=== PATIENT | female | born 1950 | race African-American/Black ===

== ENCOUNTER → 2024-01-13 | Outpatient (CLI) | payer MEDICARE, SELFPAY ==
[2024-01-13 13:53] LABS: Basophils # (Auto) 0.1 Thou/mm3 (0.0-0.2); Basophils % (Auto) 1 % (0-2.5); Eosinophils # (Auto) 0.2 Thou/mm3 (0.0-0.5); Eosinophils % (Auto) 3 % (0-10); Hemoglobin 12.8 g/dL (12.0-16.0); Immature Granulocytes % (Auto) 0 % (0-0); Immature Granulocytes Auto 0.02 Thou/mm3 (0.00-0.00); Lymphocytes # (Auto) 1.6 Thou/mm3 (1.0-4.8); Lymphocytes % (Auto) 23 % (10-50); Mean Corpuscular Volume 91 fL (80-100); Monocytes # (Auto) 0.7 Thou/mm3 (0.0-0.8); Monocytes % (Auto) 10 % (0-12); Neutrophils # (Auto) 4.6 Thou/mm3 (1.8-7.7); Neutrophils % (Auto) 63 % (37-80); Nucleated Red Blood Cell % 0 /100 WBC (0); Platelet Count 216 Thou/mm3 (140-440); RDW Standard Deviation 44.6 fL (36.4-46.3); Red Blood Count 4.42 Miln/mm3 (4.00-5.20); White Blood Count 7.2 Thou/mm3 (3.6-11.0)
[2024-01-13 14:38] LABS: Alanine Aminotransferase 10 U/L (10-49); Albumin/Globulin Ratio 1.7 (1.2-2.2); Alkaline Phosphatase 56 U/L (46-116); Amylase 113 U/L (30-118); Anion Gap 5 (7-16); Aspartate Amino Transferase 17 U/L (0-34); BUN/Creatinine Ratio 18 Ratio (12-20); Bilirubin,Total 0.4 mg/dL (0.3-1.2); Blood Urea Nitrogen 11 mg/dL (9-23); Calcium 9.4 mg/dL (8.3-10.6); Calcium (Corrected) 9.4 mg/dL (8.5-10.1); Carbon Dioxide 27.6 mMol/L (20.0-31.0); Chloride 108 mMol/L (98-107); Creatinine (Component) 0.6 mg/dL (0.6-1.3); Globulin 2.4 gm/dL (2.3-3.5); Glucose 87 mg/dL (74-106); Lipase 20 U/L (12-53); Osmolality,Calculated 279 (275-295); Potassium 3.8 mMol/L (3.4-5.1); Sodium 141 mMol/L (136-145); Total Protein 6.4 gm/dL (5.7-8.2); eGFR > 60 See Note
[2024-01-13 15:49] LABS: Collection Type, Urine Clean Catch
[2024-01-13 16:41] LABS: Bilirubin,Urine Negative (Negative); Blood,Urine Negative (Negative); Clarity,Urine Clear (Clear/Hazy); Color,Urine Yellow (Lt Yel-Yel); Glucose, Urine Negative (Negative); Ketones,Urine Negative (Negative); Leukocyte Esterase,Urine Negative (Negative); Nitrite,Urine Negative (Negative); Protein,Urine Trace (Neg - Trace); RBC,Urine 5 /hpf (0-3); Specific Gravity,Urine 1.034 (1.001-1.035); Squamous Epithelial Cell,Urine 2 /hpf (0-5); WBC,Urine 2 /hpf (0-5)
== END | disposition home or self-care (01) ==
LOC: COPL 13:24
PROVIDERS: PCP Specialist; Referring Provider Specialist; Visit Provider Specialist
DX: R91.1 Solitary pulmonary nodule (principal); R06.02 Shortness of breath; D50.0 Iron deficiency anemia secondary to blood loss (chronic)
CPT/HCPCS: 36415; 80053; 81001; 82150; 83690; 85025

== ENCOUNTER → 2024-01-25 | Outpatient (CLI) | payer MEDICARE, SELFPAY ==
--- NOTE | 2024-01-25 13:00 | XR_ITS ---
Examination: CT chest with intravenous contrast CT abdomen with intravenous contrast CT pelvis with intravenous contrast 2-D coronal and sagittal reconstructions Time of exam: January 25, 2024 1342 hours INDICATIONS: Diagnosis solitary pulmonary nodule CTDI: vol (mGy) : 11.7 DLP: (mGycm): 484 Technique: Multiple axial images of the chest, abdomen and pelvis with intravenous contrast, 3.0 mm slice thickness. Images obtained post intravenous injection Isovue 370 60 cc. 2-D sagittal and coronal reconstructions. Low dose protocols were performed. One or more of the following dose reduction techniques were used; automated exposure control, adjustment of the mA and/or KV according to patient size, use of iterative reconstruction technique. Findings: 12 mm right thyroid nodule No thoracic aortic aneurysm dilatation Main pulmonary artery segment is enlarged, 3.8 cm No pulmonary artery emboli noted on this non-CTA study COPD with areas of airspace destruction At least 18 pulmonary nodules, several pleural-based, the largest in the anterior right lung 18 mm Irregular abnormal pleural thickening encasing the right hemithorax, most prominent medial upper right hemithorax extending into the mediastinum, axial image 51 No lobar pneumonia Liver is irregular in contour Upper abdominal wall hernia defect, 7 cm containing colon Spleen is not enlarged No pancreatic mass No hydronephrosis Abdominal aortic calcification no aneurysmal dilatation No bowel obstruction No diverticulitis Atrophic uterus No abdominal or pelvic lymphadenopathy Prominent osteopenia with moderate disc narrowing L3-L4 IMPRESSION: 12 mm right thyroid nodule, consider thyroid sonography follow-up At least 18 mm pulmonary nodules, the largest in the anterior right lung 18 mm, consider pulmonary nodular metastatic disease Markedly abnormal nodular masslike pleural thickening encasing the right hemithorax, extending into the mediastinum in the upper right hemithorax axial image 51, differential would include mesothelioma, metastatic pleural disease, lung cancer The abnormal pleural thickening is amenable to CT-guided percutaneous biopsy for cytologic analysis
== END | disposition home or self-care (01) ==
LOC: SCAT 13:01
PROVIDERS: PCP Specialist; Referring Provider Specialist; Visit Provider Specialist
DX: E04.1 Nontoxic single thyroid nodule (principal); R91.8 Other nonspecific abnormal finding of lung field
CPT/HCPCS: 71260; 74177; A4649; Q9967

== ENCOUNTER → 2024-01-27 | Outpatient (CLI) | payer MEDICARE, SELFPAY ==
[2024-01-27 13:34] LABS: Basophils # (Auto) 0.1 Thou/mm3 (0.0-0.2); Basophils % (Auto) 1 % (0-2.5); Eosinophils # (Auto) 0.3 Thou/mm3 (0.0-0.5); Eosinophils % (Auto) 4 % (0-10); Hematocrit 43.4 % (36.0-46.0); Hemoglobin 13.9 g/dL (12.0-16.0); Immature Granulocytes % (Auto) 0 % (0-0); Immature Granulocytes Auto 0.01 Thou/mm3 (0.00-0.00); Lymphocytes # (Auto) 1.7 Thou/mm3 (1.0-4.8); Lymphocytes % (Auto) 27 % (10-50); Mean Corpuscular Hemoglobin 29.1 pg (25.0-35.0); Mean Corpuscular Volume 91 fL (80-100); Monocytes # (Auto) 0.6 Thou/mm3 (0.0-0.8); Monocytes % (Auto) 10 % (0-12); Neutrophils # (Auto) 3.7 Thou/mm3 (1.8-7.7); Neutrophils % (Auto) 58 % (37-80); Nucleated Red Blood Cell % 0 /100 WBC (0); Platelet Count 259 Thou/mm3 (140-440); RDW Standard Deviation 45.5 fL (36.4-46.3); Red Blood Count 4.77 Miln/mm3 (4.00-5.20); White Blood Count 6.4 Thou/mm3 (3.6-11.0)
[2024-01-27 13:40] LABS: INR 0.9 (0.9-1.3); Partial Thromboplastin Time 26.9 Seconds (22.0-36.0); Prothrombin Time 10.3 Seconds (9.0-12.2)
== END | disposition home or self-care (01) ==
PROVIDERS: PCP Specialist; Referring Provider Specialist; Visit Provider Specialist
DX: Z01.810 Encounter for preprocedural cardiovascular examination (principal)
CPT/HCPCS: 36415; 85025; 85610; 85730

== ENCOUNTER 2024-02-08 07:27 | Outpatient (CLI) | payer MEDICARE, SELFPAY ==
[2024-02-04 09:05] VITALS: BMI 18.8
[2024-02-07 15:39] LABS: Basophils # (Auto) 0.1 Thou/mm3 (0.0-0.2); Basophils % (Auto) 1 % (0-2.5); Eosinophils # (Auto) 0.1 Thou/mm3 (0.0-0.5); Eosinophils % (Auto) 2 % (0-10); Hematocrit 39.7 % (36.0-46.0); Hemoglobin 12.9 g/dL (12.0-16.0); Immature Granulocytes % (Auto) 0 % (0-0); Immature Granulocytes Auto 0.01 Thou/mm3 (0.00-0.00); Lymphocytes # (Auto) 1.4 Thou/mm3 (1.0-4.8); Lymphocytes % (Auto) 21 % (10-50); Mean Corpuscular HGB Conc 32.5 g/dl (31.0-37.0); Mean Corpuscular Hemoglobin 29.4 pg (25.0-35.0); Mean Corpuscular Volume 90 fL (80-100); Monocytes # (Auto) 0.7 Thou/mm3 (0.0-0.8); Monocytes % (Auto) 11 % (0-12); Neutrophils # (Auto) 4.3 Thou/mm3 (1.8-7.7); Neutrophils % (Auto) 65 % (37-80); Nucleated Red Blood Cell % 0 /100 WBC (0); Platelet Count 290 Thou/mm3 (140-440); RDW Standard Deviation 44.4 fL (36.4-46.3); Red Blood Count 4.39 Miln/mm3 (4.00-5.20); White Blood Count 6.7 Thou/mm3 (3.6-11.0)
[2024-02-07 15:51] LABS: Blood Urea Nitrogen 14 mg/dL (9-23); Creatinine (Component) 0.8 mg/dL (0.6-1.3); eGFR > 60 See Note
[2024-02-07 15:54] LABS: INR 0.9 (0.9-1.3); Prothrombin Time 10.3 Seconds (9.0-12.2)
[2024-02-08] VITALS (10 sets, daily range): BP systolic 129–160; BP diastolic 69–105; PULSE 84–92; RESP 16–19; TEMP 36.9–37; O2SAT 94–98
--- NOTE | 2024-02-08 | XR_ITS ---
Examination: AP chest single view Technique one AP upright portable chest single view Exam date and time: February 08, 2024 1044 hours INDICATIONS: Post lung biopsy today FINDINGS: No pneumothorax on the right post pulmonary nodule biopsy Normal heart size Multiple poorly defined parenchymal and pleural nodular thickening in the right hemithorax IMPRESSION: No pneumothorax post lung biopsy
--- NOTE | 2024-02-08 08:30 | XR_ITS ---
Examination: CT-guided percutaneous biopsy pulmonary nodule right upper lobe CT chest without intravenous contrast Date and time of procedure: February 08, 2024 0959 hours INDICATIONS: CT chest January 25, 2024 18 mm pulmonary nodule anterior right lung Informed consent provided. A timeout was completed verifying correct patient, procedure, site and positioning. . Technique: Axial 3 mm sections were obtained for localization of the pulmonary nodule right upper lobe Appropriate area is marked. The patient's site was prepped and draped in sterile fashion Maximal sterile barrier technique utilized, including hand hygiene Local anesthesia was obtained with 1% lidocaine. Low dose protocols were performed. One or more of the following dose reduction techniques were used; automated exposure control, adjustment of the mA and/or KV according to patient size, use of iterative reconstruction technique. Utilizing CT fluoroscopic guidance 3 core biopsies obtained of the pulmonary nodule right upper lobe Patient appears in stable condition during this procedure. At completion of the procedure, the patient is in satisfactory condition. Estimated blood loss 0 cc Complete pathology report to follow. Impression: Successful CT-guided percutaneous biopsy pulmonary nodule right upper lobe
[2024-02-08] MEDS: SODIUM CHLORIDE 0.9% 500 ML 100 ML 20 ML IV (09:53)
[2024-02-08] MEDS: fentaNYL CIT INJ 50 mCg/ML AMP 2ML 25 MCG IVP (10:18)
--- NOTE | 2024-02-08 11:21 | PC.NURSE ---
first chest xray read by MD Lugo was negative for pneumothorax
--- NOTE | 2024-02-08 11:40 | XR_ITS ---
Examination: AP chest single view TECHNIQUE: Upright AP portable chest single view Exam date and time: February 08, 2024 1147 hours Comparison February 08, 2024 INDICATIONS: Post lung biopsy today. FINDINGS: No pneumothorax post lung biopsy Normal heart size Pleural parenchymal disease right hemithorax IMPRESSION: No pneumothorax post lung biopsy
== END 2024-02-08 12:53 | disposition home or self-care (01) ==
PROVIDERS: Radiology Diagnostic Radiology; PCP Specialist; Referring Provider Specialist; Visit Provider Specialist
DX: C34.11 Malignant neoplasm of upper lobe, right bronchus or lung (principal); Z01.818 Encounter for other preprocedural examination
CPT/HCPCS: 32408; 36415; 77012; 82565; 84520; 85025; 85610; 85730; J3010; J7040

== ENCOUNTER 2024-02-22 08:18 | Outpatient (RCR) | payer MEDICARE, SELFPAY ==
--- NOTE | 2024-02-28 12:46 | CTCCONSULT_ITS ---
Patient: LAURA KAYE : 1950 MR#: [id number] Page 2 of 3 CONSULTATION NOTE DATE OF CONSULTATION: 02/22/2024 NAME: LAURA KAYE ACCOUNT: [id number] : 1950 AGE: 73 REFERRING PHYSICIAN: Anita Black MD PRIMARY PHYSICIAN: Anita Black MD REASON FOR VISIT: New diagnosis of squamous cell lung cancer ONCOLOGY HISTORY: DIAGNOSIS: Invasive squamous cell cancer DATE OF DIAGNOSIS: 02/08/2024 STAGE/TNM: Unknown TREATMENT HISTORY: Care?Plan Start?Date Cycle Day Intent HISTORY OF PRESENT ILLNESS: 73-year-old female with a new diagnosis of squamous cell lung cancer. Patient is complaining of weig ht loss. Patient's last scan was in January. Patient was complaining of bronchitis-like symptoms. Patient then was found to have pulmonary nodules and advice was to repeat CT scan. Patient also had 15 pound weight loss. Patient's biopsy now showed squamous cell lung cancer. OTHER MEDICAL HISTORY/CONDITIONS: Lung cancer Asthma Gastritis / gastroentestinal disease Umbilical?hernia?repair?-?20?yrs?ago FAMILY HISTORY: Patient?denies?family?cancer?history. SOCIAL HISTORY: Occupational?History:?Retired?- Education?Level:?Vocational School Graduate Marital?Status:? Tobacco Use:?Smoked 1PP x 10yrs; quit 6 months ago ETOH?Use:?Socailly Drug?Note:?Denies Social?History?Note:?Son?lives?wtih?pt [employer] HISTORY: Menarche?-?Age:?14 Menopause:?Age?57 :?4 Live?Births:?4 Age?1st?:?16 MEDICATIONS: 1. Albuterol Sulfate HFA - 90 mcg/Actuation 1 Puff(s) Twice a Day 2. Calcium 600 + D(3) - 600-125 mg-unit 1 tab Every other day 3. cyclobenzaprine - 10 mg 1 tab Daily 4. hydrOXYzine HCl - 10 mg 1 tab Daily 5. montelukast - 10 mg 1 tab Daily 6. [place] - 10-325 mg 1 tab Twice a Day 7. omeprazole - 20 mg 1 Capsule Twice a Day 8. pantoprazole - 40 mg 1 tab Daily 9. Triamcinolone Acetonide (Top) - 0.1 % As directed Medications Last Reconciled by Katarzyna Siegel RN on 02/22/2024 ALLERGIES: No Known Drug Allergies REVIEW OF SYSTEMS: A complete 14-point review of systems was performed and is negative except as noted in interval histo ry. PHYSICAL EXAMINATION: VITAL SIGNS: Temperature?0, Height?66?inches Weight?116?lbs PAIN: 4 - Moderate pain ECOG Performance Status: 1 - Symptomatic; ambulatory; restricted in strenuous activity GENERAL APPEARANCE: Appears well, in no apparent distress, appropriately interactive. HEENT: Normocephalic, no temporal wasting, normal conjunctiva, no scleral icterus, normal hearing, li ps without lesions, neck normal range of motion. CARDIOVASCULAR: Not assessed. PULMONARY: Normal respiratory effort, no respiratory distress or use of accessory muscles, speaking i n full sentences, no tachypnea. EXTREMITIES: No pedal edema or cyanosis. SKIN: Normal skin appearance. NEUROLOGIC: Alert and oriented x4. PSHYCHIATRIC: Appropriate affect, mood normal, behavior normal, intact thought and speech. LABORATORY DATA: I have personally reviewed and interpreted each of the patient?s relevant lab tests, abnormal finding s are below: Date ASSESSMENT/PLAN: Squamous cell lung cancer Patient needs staging PET CT scan MRI brain to evaluate any metastatic disease PFTs Once patient have clear staging imaging, then will decide whether patient will need chemotherapy or o nly surgical referral ORDERS: PET CT scan MRI and PFT RETURN TO CLINIC: RTC in 1 to 2 weeks with the PET CT scan results BILLING AND COMPLIANCE: I reviewed external records from providers outside my specialty as summarized above. I spent a total of 50 minutes on this patient?s care on the day of their visit excluding time spent related to any bi lled procedures. This time includes time spent with the patient as well as time spent documenting in the medical record, reviewing patients records and tests, obtaining history, placing orders, communi cating with other healthcare professionals, counseling the patient, family or caregiver, and/or care coordination for the diagnoses above. Electronically Signed by: {Object.Sanct_ID*PnP.NameFL@M}, {Object.Sanct_ID*PnP.Suffix@U} D: {Object.Sanct_Date} T: {Object.Sanct_Time} CC: Anita?DUNG Black PCP: Anita Black Referring: Anita Black This document was completed utilizing speech recognition software. Grammatical errors, random word in sertions, pronoun errors, and incomplete sentences are an occasional consequence of this system due t o software limitations, ambient noise, and hardware issues. Any formal questions or concerns about th e content, text or information contained within the body of this dictation should be directly address ed to the provider for clarification.
== END 2024-02-22 23:59 | disposition home or self-care (01) ==
LOC: SCTC 08:18
PROVIDERS: PCP Specialist; Referring Provider Specialist; Visit Provider Internal Medicine Hematology & Oncology
DX: C34.11 Malignant neoplasm of upper lobe, right bronchus or lung (principal); R63.4 Abnormal weight loss; Z68.1 Body mass index [BMI] 19.9 or less, adult
CPT/HCPCS: 99212; G0463

== ENCOUNTER 2024-03-07 13:10 | Outpatient (RCR) | payer MEDICARE, SELFPAY ==
--- NOTE | 2024-03-07 14:10 | CTCCONSULT_ITS ---
[facility] [address] [place], [place] [address] Consultation Note Date: 03/07/2024 MR#: [id number] Name: LAURA KAYE : 1950 Dx: C34.11 Malignant neoplasm of upper lobe, right bronchus or lung Attending physician. Anita Black MD Reason for consultation. Patient with newly diagnosed SCCA lung CA. History of Present Illness: Patient is a 73-year-old lady with limited smoking history though quit ex perienced bronchitis-like symptoms and weight loss and CT scan 02/14/2024 revealed a 12 mm right thyr oid nodule, at least 18 mm pulmonary nodules the largest in the anterior right lung 18 mm along with markedly abnormal nodular masslike pleural thickening encasing the right hemithorax extending to medi astinum in the upper right hemithorax. CT-guided needle biopsy right upper lobe nodule 02/08/2024 re vealed invasive squamous cell carcinoma well-differentiated. Patient has already seen Dr. Margot pittman dical oncologist who has ordered PET scan MRI brain and PFTs. Patient referred for radiation oncolog y consultation. Past Medical History: Asthma gastritis umbilical hernia repair 20 years ago Meds. Albuterol calcium cyclobenzaprine hydroxyzine montelukast [place] 10 twice daily omeprazole pant oprazole triamcinolone Family history no cancer in family Social History: Limited smoking history lives in [place] cared for by nephew who is a length control tester Review of Systems: Has had weight loss chest pressure pain symptoms Physical Exam: General: Tired appearing lady in moderate distress from chest discomfort HEENT: Atraumatic normocephalic extraocular is intact no oral lesions no cervical or supraclavicular adenopathy CV: Decreased breath sounds right lung heart regular rate and rhythm ABD: Soft no organomegaly or tenderness EXT: No signs of clubbing or edema Assessment:#1. Squamous cell CA right upper lung, possibly extensively involving right hemithorax an d mediastinum. 2. PET scan PFTs MRI brain pending. 3. Will evaluate patient afterward and make recommendations regarding any treatments that could bene fit patient. 4. Thank you very much allowing me to evaluate this patient Cc: Anita Black MD Electronically signed by: Robbi Pratt MD, DABR 03/07/2024 2:08 PM
== END 2024-03-24 23:59 | disposition home or self-care (01) ==
LOC: SCTC 13:10
PROVIDERS: PCP Specialist; Referring Provider Specialist; Visit Provider Radiology Therapeutic Radiology
DX: C34.11 Malignant neoplasm of upper lobe, right bronchus or lung (principal)
CPT/HCPCS: 99213; A9270; G0463

== ENCOUNTER → 2024-03-16 | Outpatient (CLI) | payer MEDICARE, SELFPAY ==
[2024-03-16 13:15] LABS: Basophils # (Auto) 0.1 Thou/mm3 (0.0-0.2); Basophils % (Auto) 1 % (0-2.5); Eosinophils # (Auto) 0.3 Thou/mm3 (0.0-0.5); Eosinophils % (Auto) 4 % (0-10); Hematocrit 38.5 % (36.0-46.0); Hemoglobin 12.3 g/dL (12.0-16.0); Immature Granulocytes % (Auto) 0 % (0-0); Immature Granulocytes Auto 0.03 Thou/mm3 (0.00-0.00); Lymphocytes # (Auto) 1.3 Thou/mm3 (1.0-4.8); Lymphocytes % (Auto) 18 % (10-50); Mean Corpuscular HGB Conc 31.9 g/dl (31.0-37.0); Mean Corpuscular Hemoglobin 28.9 pg (25.0-35.0); Mean Corpuscular Volume 90 fL (80-100); Monocytes # (Auto) 0.8 Thou/mm3 (0.0-0.8); Monocytes % (Auto) 11 % (0-12); Neutrophils # (Auto) 4.7 Thou/mm3 (1.8-7.7); Neutrophils % (Auto) 66 % (37-80); Nucleated Red Blood Cell % 0 /100 WBC (0); Platelet Count 301 Thou/mm3 (140-440); RDW Standard Deviation 46.4 fL (36.4-46.3); Red Blood Count 4.26 Miln/mm3 (4.00-5.20); White Blood Count 7.2 Thou/mm3 (3.6-11.0)
[2024-03-16 13:25] LABS: Alanine Aminotransferase 11 U/L (10-49); Albumin, Serum 3.7 gm/dL (3.4-4.8); Albumin/Globulin Ratio 1.4 (1.2-2.2); Alkaline Phosphatase 68 U/L (46-116); Anion Gap 6 (7-16); Aspartate Amino Transferase 19 U/L (0-34); BUN/Creatinine Ratio 25 Ratio (12-20); Bilirubin,Total 0.7 mg/dL (0.3-1.2); Blood Urea Nitrogen 10 mg/dL (9-23); Calcium (Corrected) 10.2 mg/dL (8.5-10.1); Carbon Dioxide 31.1 mMol/L (20.0-31.0); Chloride 105 mMol/L (98-107); Creatinine (Component) 0.4 mg/dL (0.6-1.3); Globulin 2.6 gm/dL (2.3-3.5); Glucose 92 mg/dL (74-106); Osmolality,Calculated 282 (275-295); Potassium 4.1 mMol/L (3.4-5.1); Sodium 142 mMol/L (136-145); Total Protein 6.3 gm/dL (5.7-8.2); eGFR > 60 See Note
== END | disposition home or self-care (01) ==
LOC: COPL 12:09
PROVIDERS: PCP Specialist; Referring Provider Radiology Therapeutic Radiology; Visit Provider Radiology Therapeutic Radiology
DX: Z01.89 Encounter for other specified special examinations (principal)
CPT/HCPCS: 36415; 80053; 85025

== ENCOUNTER → 2024-03-18 | Outpatient (CLI) | payer MEDICARE, SELFPAY ==
--- NOTE | 2024-03-18 08:00 | XR_ITS ---
Examination: MRI of brain without intravenous contrast. MRI brain with intravenous contrast. Date and time of exam:March 18, 2024 0823 hrs. Indications: Diagnosis malignant neoplasm unspecified part of right bronchus or lung, staging Technique: Multiple axial and sagittal images of the brain to been obtained. Siemens high-resolution 1.52 Mirta short bore scanner utilized. Sagittal sections, T1 weighted images, TR 500, TE 14, are performed. Axial sections proton-density and T2-weighted images have been obtained. Inversion recovery axial images, TR 9260, TE 111, TR 2500. Diffusion weighted images, axial sections, TR 4800, TE 128, B value 1000. Axial sections, ADC map, TR 4800, TE 128. Axial and coronal images were also obtained post 9 cc gadolinium administered intravenously. Findings:: Enlargement of the sella turcica is not present. The optic chiasm and infundibular stalk are not remarkable. There is no localized enlargement of the medulla or chase. Fourth ventricle and cerebellar tonsils appear normal in position. No subacute area of hemorrhage density is seen. Fourth ventricle is midline. Mass in the cerebellopontine angle region is not evident. 7th and 8th nerve complexes exhibit symmetry Globes are symmetrical Orbital musculature including medial lateral rectus muscles do not exhibit abnormality Increased white matter signal is mild Effacement of the cortical sulcal markings is not identified. Mass effect upon the ventricular system is not identified. Diffusion-weighted images demonstrate no focus of restricted diffusion Contrast images demonstrate no abnormal enhancing cerebellar or cerebral lesions Impression: Negative for acute hemorrhage, mass effect or midline shift No acute infarct No abnormal enhancing cerebellar or cerebral metastatic lesions
== END | disposition home or self-care (01) ==
PROVIDERS: PCP Specialist; Referring Provider Internal Medicine Hematology & Oncology; Visit Provider Internal Medicine Hematology & Oncology
DX: C34.91 Malignant neoplasm of unspecified part of right bronchus or lung (principal)
CPT/HCPCS: 70553; A9579

== ENCOUNTER → 2024-03-23 | Outpatient (CLI) | payer MEDICARE, SELFPAY ==
--- NOTE | 2024-03-23 08:45 | XR_ITS ---
EXAMINATION: PET/CT FUSION SKULL TO THIGH EXAM DATE AND TIME: March 23, 2024 0916 hours INDICATIONS: Diagnosis lung cancer staging prior to treatment CTDI:vol (mGy) 2.28 DLP: (mGycm) 179.66 PROCEDURE: 15.27 mCi FDG was administered intravenously To allow for distribution and uptake of radiotracer, the patient was allowed to rest quietly in a shielded room. Imaging was performed on an integrated 16-slice PET/CT scanner, with scanning from the skull base to the mid thigh. Serum blood glucose at the time of the injection was measured 100 mg/dL. CT scanning was performed without oral or intravenous contrast material. FINDINGS: Head and Neck: There is no barbara hypermetabolism in the neck. The visualized portions of the brain are normal in appearance on CT. Chest: Extensive hypermetabolic nodular pleural disease surrounding the right lung, measuring up to 26 mm in thickness 8mm hypermetabolic lymph node anterior to the ascending thoracic aorta 18 mm hypermetabolic subcarinal lymphadenopathy 14 mm hypermetabolic right internal mammary lymph node Minimal hypermetabolic right pleural fluid Abdomen and Pelvis: There is no barbara hypermetabolism in retroperitoneal or pelvic chains. The spleen is normal in size and FDG avidity. Musculoskeletal: Marrow uptake is within normal range. IMPRESSION: Hypermetabolic mediastinal and right internal mammary lymphadenopathy Extensive abnormal hypermetabolic nodular pleural disease surrounding the right lung
== END | disposition home or self-care (01) ==
PROVIDERS: PCP Specialist; Referring Provider Internal Medicine Hematology & Oncology; Visit Provider Internal Medicine Hematology & Oncology
DX: R59.0 Localized enlarged lymph nodes (principal); R91.8 Other nonspecific abnormal finding of lung field; C34.11 Malignant neoplasm of upper lobe, right bronchus or lung
CPT/HCPCS: 78815; A9552

== ENCOUNTER 2024-04-17 06:59 | Outpatient (CLI) | payer MEDICARE, SELFPAY ==
[2024-04-17] VITALS (17 sets, daily range): BP systolic 124–159; BP diastolic 72–99; PULSE 85–102; RESP 14–23; TEMP 37.1–37.3; O2SAT 94–100; BMI 17.6
[2024-04-17 07:40] LABS: Basophils # (Auto) 0.1 Thou/mm3 (0.0-0.2); Basophils % (Auto) 1 % (0-2.5); Eosinophils # (Auto) 0.3 Thou/mm3 (0.0-0.5); Eosinophils % (Auto) 3 % (0-10); Hemoglobin 13.5 g/dL (12.0-16.0); Immature Granulocytes % (Auto) 0 % (0-0); Immature Granulocytes Auto 0.02 Thou/mm3 (0.00-0.00); Lymphocytes # (Auto) 1.5 Thou/mm3 (1.0-4.8); Lymphocytes % (Auto) 18 % (10-50); Mean Corpuscular HGB Conc 33.8 g/dl (31.0-37.0); Mean Corpuscular Hemoglobin 29.9 pg (25.0-35.0); Mean Corpuscular Volume 89 fL (80-100); Monocytes % (Auto) 12 % (0-12); Neutrophils # (Auto) 5.4 Thou/mm3 (1.8-7.7); Neutrophils % (Auto) 65 % (37-80); Nucleated Red Blood Cell % 0 /100 WBC (0); Platelet Count 220 Thou/mm3 (140-440); RDW Standard Deviation 44.4 fL (36.4-46.3); Red Blood Count 4.51 Miln/mm3 (4.00-5.20); White Blood Count 8.4 Thou/mm3 (3.6-11.0)
[2024-04-17 08:28] LABS: INR 0.9 (0.9-1.3); Partial Thromboplastin Time 23.1 Seconds (22.0-36.0); Prothrombin Time 10.2 Seconds (9.0-12.2)
[2024-04-17] MEDS: ceFAZolin 1 GM in SODIUM CHLORIDE 0.9% 100 ML IV (09:09)
[2024-04-17] MEDS: MIDAZOLAM INJ 1 MG/ML VIAL 2 ML 2 MG IV (09:24)
[2024-04-17] MEDS: fentaNYL CIT INJ 50 mCg/ML AMP 2ML 100 MCG IVP (09:24)
[2024-04-17] MEDS: HEPARIN SOD LOCK SYR 100 UNIT/ML 500 UNIT STFIELD (09:27)
[2024-04-17] MEDS: LIDOCAINE INJ PF 1% 30 ML VIAL 20 ML INFL (09:27)
[2024-04-17] MEDS: LIDOCAINE 1% W/EPI 1:100K 20 ML VIAL INFL (09:27)
--- NOTE | 2024-04-17 09:30 | XR_ITS ---
Exam: Fluoroscopic and ultrasound-guided right IJ port placement. Date: 04/17/2024, 8:34 AM Indication: Access for chemotherapy. Fluoroscopy time 0.2 minutes Dose: 3.92 mGy Technique: After a discussion of risks and benefits informed consent was obtained from the patient. Patient was brought to the angiography suite and placed supine on the exam table. Preliminary ultrasound evaluation showed the right IJ to be patent. The skin overlying the right neck and upper chest was cleaned and draped in normal sterile surgical fashion. 20 cc's of 1% lidocaine was used for local anesthesia. Conscious sedation was begun with direct nursing supervision. Using ultrasound guidance access to the IJ was obtained with a micropuncture needle. An 0.018 wire was advanced through the needle into the SVC and the needle was withdrawn. A 5 Emirati micropuncture change sheath was advanced over the wire, and the wire removed. The sheath was capped. A 5 cm incision was made over right chest. Small pouch was created with a combination of sharp and blunt dissection. The port and catheter tubing were attached to the tunneling device and pulled underneath the skin and exiting at the right IJ access site. Right IJ 5 inch sheath was replaced with a 7 Emirati peel-away sheath. Catheter was advanced through the peel-away sheath and peel-away sheath was removed. Distal catheter tip was appropriately positioned at the cavoatrial junction. The port pocket was closed with deep interrupted sutures using 2-0 Vicryl and superficial running sutures utilized 3-0 Vicryl. IJ access site was closed with 3-0 Vicryl and Dermabond glue Port flushed and aspirated easily and is ready for use. Impression: Successful placement of right IJ port as above with distal tip at the caval atrial junction Catheter is ready for use.
--- NOTE | 2024-04-17 10:11 | PC.NURSE ---
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
--- NOTE | 2024-04-17 11:30 | PC.NURSE ---
1130 patient is awake, alert, breathing unlabored, dressing dry with no bleeding, discharge instructions were given to patient and nephew Ronaldo, patient discharged home in wheelchair with all belongings including inhaler. Pt had stated she couldn't find her second inhaler, nephew stated he found the second inhaler.
== END 2024-04-17 11:30 | disposition home or self-care (01) ==
PROVIDERS: Radiology Diagnostic Radiology; PCP Specialist; Referring Provider Internal Medicine Hematology & Oncology; Visit Provider Internal Medicine Hematology & Oncology
DX: C34.11 Malignant neoplasm of upper lobe, right bronchus or lung (principal)
CPT/HCPCS: 36558; 36415; 76937; 77001; 85025; 85610; 85730; 99152; C1769; C1788; C1894; J0690; J1642; J2250; J3010; J3490; J7050

== ENCOUNTER 2024-04-21 07:50 | Outpatient (RCR) | payer MEDICARE, SELFPAY ==
--- NOTE | 2024-04-11 09:57 | CTCFLWUP_ITS ---
[facility] [address] [place], [place] [address] FOLLOW-UP NOTE Date: 04/11/2024 MR#: [id number] Name: LAURA KAYE : 1950 Dx: C34.11 Malignant neoplasm of upper lobe, right bronchus or lung Identification. Patient was squamous SCCA of the lung had PET scan performed 03/23/2024. This revealed extensive disease involving the right chest including hypermetabolic mediastinal and right internal mammary lymphadenopathy and pleural region. Patient is clearly not a surgical candidate, and not a radiation candidate at this point. Will try to schedule patient see Dr. Frost as quickly as possible. Electronically signed by: Robbi Pratt M.D. 04/11/2024 9:55 AM
--- NOTE | 2024-04-13 16:44 | CTCFLWUP_ITS ---
Patient: LAURA KAYE : 1950 Page 2 of 2 FOLLOW UP NOTE DATE OF SERVICE: 04/13/2024 NAME: LAURA KAYE ACCOUNT: [id number] : 1950 AGE: 73 INTERVAL HISTORY: Patient is 73-year-old woman here for follow-up on squamous cell lung cancer. Patient is yet to start her treatment. Patient was seen by radiation oncology and surgery. ONCOLOGY HISTORY: DIAGNOSIS: Invasive squamous cell cancer DATE OF DIAGNOSIS: 02/08/2024 STAGE/TNM: Likely stage III based on imaging TREATMENT HISTORY: Care?Plan Start?Date Cycle Day Intent Pembro?Paclitaxel?Carbopla?sq?cell 04/11/2024 1 21 Palliative HISTORY OF PRESENT ILLNESS: 73-year-old female with a new diagnosis of squamous cell lung cancer. Patient is complaining of weight loss. Patient's last scan was in January. Patient was complaining of bronchitis-like symptoms. Patient then was found to have pulmonary nodules and advice was to repeat CT scan. Patient also had 15 pound weight loss. Patient's biopsy now showed squamous cell lung cancer. OTHER MEDICAL HISTORY/CONDITIONS: Lung cancer Asthma Gastritis / gastroentestinal disease Umbilical?hernia?repair?-?20?yrs?ago FAMILY HISTORY: Patient?denies?family?cancer?history. SOCIAL HISTORY: Occupational?History:?Retired?- Education?Level:?Vocational School Graduate Marital?Status:? 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 Albuterol Sulfate HFA - 90 mcg/Actuation 1 Puff(s) Twice a Day 2. azithromycin - 250 mg tab As directed 3. Calcium 600 + D(3) - 600-125 mg-unit 1 tab Every other day 4. cyclobenzaprine - 10 mg 1 tab Daily 5. hydrOXYzine HCl - 10 mg 1 tab Daily 6. montelukast - 10 mg 1 tab Daily 7. [place] - 10-325 mg 1 tab Twice a Day 8. omeprazole - 20 mg 1 Capsule Twice a Day 9. pantoprazole - 40 mg 1 tab Daily 10. Triamcinolone Acetonide (Top) - 0.1 % As directed Medications Last Reconciled by Shani Portillo MA on 04/13/2024 ALLERGIES: No Known Drug Allergies REVIEW OF SYSTEMS: A complete 14-point review of systems was performed and is negative except as noted in interval history. PHYSICAL EXAMINATION: VITAL SIGNS: Temperature?97.9, B/P?123/77, Oxygen?Saturation?95% Weight?101?lbs PAIN: 5 - Between moderate and severe pain ECOG Performance Status: 3 - Symptomatic; limited self-care; spends >50% of time in bed, not bedridden GENERAL APPEARANCE: Appears well, in no apparent distress, appropriately interactive. HEENT: Normocephalic, no temporal wasting, normal conjunctiva, no scleral icterus, normal hearing, lips without lesions, neck normal range of motion. CARDIOVASCULAR: Not assessed. PULMONARY: Bilateral expiratory wheezing EXTREMITIES: No pedal edema or cyanosis. SKIN: Normal skin appearance. NEUROLOGIC: Alert and oriented x4. PSHYCHIATRIC: Appropriate affect, mood normal, behavior normal, intact thought and speech. LABORATORY DATA: I have personally reviewed and interpreted each of the patient?s relevant lab tests, abnormal findings are below: Date 03/16/24 ??WHITE?BLOOD?COUNT?(Thou/mm3) 7.2 ??RED?BLOOD?COUNT?(Miln/mm3) 4.26 ??HEMOGLOBIN?(gm/dl) 12.3 ??HEMATOCRIT?(%) 38.5 ??PLATELET?COUNT?(Thou/mm3) 301 ??NEUTROPHILS?%,?AUTO?(%) 66 ??LYMPH?%,?AUTO?(%) 18 ??NEUTROPHILS,?AUTO?(Thou/mm3) 4.7 ASSESSMENT/PLAN: Squamous cell lung cancer likely stage III 03/23/2024-PET CT scan reviewed.Hypermetabolic mediastinal and right internal mammary lymphadenopathy Extensive abnormal hypermetabolic nodular pleural disease surrounding the right lung MRI brain reviewed and shows Negative for acute hemorrhage, mass effect or midline shift No acute infarct No abnormal enhancing cerebellar or cerebral metastatic lesions PFTs shows very low lung function Patient was seen by radiation oncology and not a candidate for radiation or surgery Discussed palliative chemotherapy CBC CMP TSH T4, port catheter placement Start chemotherapy TANG RETURN TO CLINIC: 6 weeks BILLING AND COMPLIANCE: I reviewed external records from providers outside my specialty as summarized above. I spent a total of 50 minutes on this patient?s care on the day of their visit excluding time spent related to any billed procedures. This time includes time spent with the patient as well as time spent documenting in the medical record, reviewing patients records and tests, obtaining history, placing orders, communicating with other healthcare professionals, counseling the patient, family or caregiver, and/or care coordination for the diagnoses above. Electronically Signed by: Jaison Frost MD T: 4:42 PM CC: Anita?DUNG Blcak PCP: Anita Black Referring: Anita Black This document was completed utilizing speech recognition software. Grammatical errors, random word insertions, pronoun errors, and incomplete sentences are an occasional consequence of this system due to software limitations, ambient noise, and hardware issues. Any formal questions or concerns about the content, text or information contained within the body of this dictation should be directly addressed to the provider for clarification.
== END 2024-04-21 23:59 | disposition home or self-care (01) ==
LOC: SCTC 07:50
PROVIDERS: PCP Specialist; Referring Provider Specialist; Visit Provider Internal Medicine Hematology & Oncology
DX: C34.11 Malignant neoplasm of upper lobe, right bronchus or lung (principal)
CPT/HCPCS: 99212; 99213; G0463

== ENCOUNTER 2024-05-16 14:32 | Emergency (ER) | payer MEDICARE, SELFPAY ==
[2024-05-16 15:13] VITALS: BP 100/65; PULSE 99; RESP 18; TEMP 36.9; O2SAT 95; BMI 16.9
--- NOTE | 2024-05-16 15:18 | EKG_ITS ---
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
--- NOTE | 2024-05-16 15:18 | XR_ITS ---
Examination: AP chest single view TECHNIQUE: Upright AP portable chest single view Exam date and time: May 16, 2024 1614 hours Comparison February 08, 2024 INDICATIONS: Chest pain shortness of breath today., Diagnosis malignant neoplasm lung FINDINGS: Again noted extensive pleural parenchymal disease right base, consider superimposed pneumonia upon the nodular pleural disease in the right lower hemithorax Please see the PET/CT scan report March 23, 2024 indicating extensive hypermetabolic nodular pleural disease surrounding the right lung Prominent right tracheobronchial lymph node Right ordered catheter tip satisfactory position IMPRESSION: Extensive pleural parenchymal disease right hemithorax with right mediastinal lymphadenopathy Suspicious for superimposed pneumonia right base
--- NOTE | 2024-05-16 15:19 | PD.EDRME ---
Rapid Medical Screening Exam RME Arrival date/time: 05/16/24 14:32 Chief Complaint: Allergic Reaction Time Seen by Provider: 05/16/24 14:53 Vital signs: Vital Signs Temperature 98.5 F 05/16/24 15:13 Pulse Rate 99 05/16/24 15:13 Respiratory Rate 18 05/16/24 15:13 Blood Pressure 100/65 05/16/24 15:13 Pulse Oximetry (%) 95 05/16/24 15:13 Oxygen Delivery Method Room Air 05/16/24 15:13 RME Narrative: Chest pressure, shortness of breath initiated today while getting her second chemo treatment, history of lung cancer.
[2024-05-16 15:40] LABS: Basophils # (Auto) 0.1 Thou/mm3 (0.0-0.2); Basophils % (Auto) 0 % (0-2.5); Eosinophils % (Auto) 0 % (0-10); Hematocrit 37.3 % (36.0-46.0); Hemoglobin 11.9 g/dL (12.0-16.0); Immature Granulocytes % (Auto) 1 % (0-0); Immature Granulocytes Auto 0.17 Thou/mm3 (0.00-0.00); Lymphocytes # (Auto) 0.7 Thou/mm3 (1.0-4.8); Lymphocytes % (Auto) 4 % (10-50); Mean Corpuscular HGB Conc 31.9 g/dl (31.0-37.0); Mean Corpuscular Hemoglobin 29.6 pg (25.0-35.0); Mean Corpuscular Volume 93 fL (80-100); Monocytes # (Auto) 0.1 Thou/mm3 (0.0-0.8); Monocytes % (Auto) 1 % (0-12); Neutrophils # (Auto) 18.9 Thou/mm3 (1.8-7.7); Neutrophils % (Auto) 95 % (37-80); Nucleated Red Blood Cell % 0 /100 WBC (0); Platelet Count 385 Thou/mm3 (140-440); RDW Standard Deviation 48.4 fL (36.4-46.3); Red Blood Count 4.02 Miln/mm3 (4.00-5.20)
[2024-05-16 15:56] LABS: Alanine Aminotransferase 9 U/L (10-49); Albumin, Serum 3.6 gm/dL (3.4-4.8); Albumin/Globulin Ratio 1.2 (1.2-2.2); Alkaline Phosphatase 156 U/L (46-116); Anion Gap 7 (7-16); Aspartate Amino Transferase 17 U/L (0-34); B-Type Natriuretic Peptide 24 pg/mL (0-100); BUN/Creatinine Ratio 20 Ratio (12-20); Bilirubin,Total 0.2 mg/dL (0.3-1.2); Blood Urea Nitrogen 10 mg/dL (9-23); Calcium 9.4 mg/dL (8.3-10.6); Calcium (Corrected) 9.7 mg/dL (8.5-10.1); Carbon Dioxide 26.3 mMol/L (20.0-31.0); Chloride 109 mMol/L (98-107); Creatinine (Component) 0.5 mg/dL (0.6-1.3); Estimated Creatinine Clearance 73.2 mL/min (>60); Globulin 3.1 gm/dL (2.3-3.5); Glucose 145 mg/dL (74-106); Osmolality,Calculated 285 (275-295); Potassium 4.7 mMol/L (3.4-5.1); Sodium 142 mMol/L (136-145); Total Protein 6.7 gm/dL (5.7-8.2); Troponin I < 0.020 ng/mL (0.0-0.045); eGFR > 60 See Note
== END 2024-05-16 16:54 | disposition left against medical advice (07) ==
LOC: SERX 16:19
PROVIDERS: Physician Assistant; Emergency Provider Emergency Medicine; PCP Specialist
DX: R07.89 Other chest pain (principal); R06.02 Shortness of breath; C34.90 Malignant neoplasm of unspecified part of unspecified bronchus or lung; Z53.29 Procedure and treatment not carried out because of patient's decision for other reasons
CPT/HCPCS: 36415; 71045; 80053; 83880; 84484; 85025; 93005; 99281

== ENCOUNTER 2024-05-22 10:27 | Outpatient (RCR) | payer MEDICARE, SELFPAY ==
[2024-04-24 12:08] LABS: Basophils # (Auto) 0.1 Thou/mm3 (0.0-0.2); Basophils % (Auto) 1 % (0-2.5); Eosinophils # (Auto) 0.3 Thou/mm3 (0.0-0.5); Eosinophils % (Auto) 3 % (0-10); Hematocrit 36.5 % (36.0-46.0); Hemoglobin 11.5 g/dL (12.0-16.0); Immature Granulocytes % (Auto) 0 % (0-0); Immature Granulocytes Auto 0.02 Thou/mm3 (0.00-0.00); Lymphocytes # (Auto) 1.4 Thou/mm3 (1.0-4.8); Lymphocytes % (Auto) 18 % (10-50); Mean Corpuscular HGB Conc 31.5 g/dl (31.0-37.0); Mean Corpuscular Hemoglobin 29.6 pg (25.0-35.0); Mean Corpuscular Volume 94 fL (80-100); Monocytes # (Auto) 0.8 Thou/mm3 (0.0-0.8); Monocytes % (Auto) 11 % (0-12); Neutrophils # (Auto) 4.9 Thou/mm3 (1.8-7.7); Neutrophils % (Auto) 66 % (37-80); Nucleated Red Blood Cell % 0 /100 WBC (0); Platelet Count 249 Thou/mm3 (140-440); RDW Standard Deviation 48.4 fL (36.4-46.3); Red Blood Count 3.88 Miln/mm3 (4.00-5.20); White Blood Count 7.5 Thou/mm3 (3.6-11.0)
[2024-04-24 12:26] LABS: Alanine Aminotransferase 9 U/L (10-49); Albumin, Serum 3.6 gm/dL (3.4-4.8); Albumin/Globulin Ratio 1.3 (1.2-2.2); Alkaline Phosphatase 61 U/L (46-116); Anion Gap 7 (7-16); Aspartate Amino Transferase 18 U/L (0-34); BUN/Creatinine Ratio 33 Ratio (12-20); Bilirubin,Total 0.4 mg/dL (0.3-1.2); Blood Urea Nitrogen 10 mg/dL (9-23); Calcium 9.1 mg/dL (8.3-10.6); Calcium (Corrected) 9.4 mg/dL (8.5-10.1); Carbon Dioxide 28.7 mMol/L (20.0-31.0); Chloride 103 mMol/L (98-107); Creatinine (Component) 0.3 mg/dL (0.6-1.3); Globulin 2.7 gm/dL (2.3-3.5); Glucose 81 mg/dL (74-106); Osmolality,Calculated 275 (275-295); Potassium 3.7 mMol/L (3.4-5.1); Sodium 139 mMol/L (136-145); Total Protein 6.3 gm/dL (5.7-8.2); eGFR > 60 See Note
[2024-04-24 13:53] LABS: Thyroid Stimulating Hormone 0.46 uIU/mL (0.55-4.78)
[2024-05-15 16:40] LABS: Basophils # (Auto) 0.1 Thou/mm3 (0.0-0.2); Basophils % (Auto) 1 % (0-2.5); Eosinophils % (Auto) 0 % (0-10); Hematocrit 37.6 % (36.0-46.0); Hemoglobin 12.1 g/dL (12.0-16.0); Immature Granulocytes % (Auto) 1 % (0-0); Immature Granulocytes Auto 0.24 Thou/mm3 (0.00-0.00); Lymphocytes # (Auto) 1.9 Thou/mm3 (1.0-4.8); Lymphocytes % (Auto) 8 % (10-50); Mean Corpuscular HGB Conc 32.2 g/dl (31.0-37.0); Mean Corpuscular Hemoglobin 29.9 pg (25.0-35.0); Mean Corpuscular Volume 93 fL (80-100); Monocytes # (Auto) 1.5 Thou/mm3 (0.0-0.8); Monocytes % (Auto) 7 % (0-12); Neutrophils # (Auto) 19.3 Thou/mm3 (1.8-7.7); Neutrophils % (Auto) 84 % (37-80); Nucleated Red Blood Cell % 0 /100 WBC (0); Platelet Count 438 Thou/mm3 (140-440); RDW Standard Deviation 47.6 fL (36.4-46.3); Red Blood Count 4.05 Miln/mm3 (4.00-5.20); White Blood Count 23.1 Thou/mm3 (3.6-11.0)
[2024-05-15 17:01] LABS: Free T4 (Free Thyroxine) 1.15 ng/dL (0.89-1.76)
[2024-05-15 17:13] LABS: Alanine Aminotransferase 10 U/L (10-49); Albumin, Serum 3.6 gm/dL (3.4-4.8); Albumin/Globulin Ratio 1.2 (1.2-2.2); Alkaline Phosphatase 169 U/L (46-116); Anion Gap 10 (7-16); Aspartate Amino Transferase 15 U/L (0-34); BUN/Creatinine Ratio 18 Ratio (12-20); Bilirubin,Total 0.4 mg/dL (0.3-1.2); Blood Urea Nitrogen 7 mg/dL (9-23); Calcium 9.2 mg/dL (8.3-10.6); Calcium (Corrected) 9.5 mg/dL (8.5-10.1); Carbon Dioxide 27.6 mMol/L (20.0-31.0); Chloride 100 mMol/L (98-107); Creatinine (Component) 0.4 mg/dL (0.6-1.3); Glucose 90 mg/dL (74-106); Osmolality,Calculated 273 (275-295); Potassium 3.7 mMol/L (3.4-5.1); Sodium 138 mMol/L (136-145); Total Protein 6.6 gm/dL (5.7-8.2); eGFR > 60 See Note
--- NOTE | 2024-05-22 23:05 | CTCFLWUP_ITS ---
Patient: LAURA KAYE : 1950 Page 4 of 5 FOLLOW UP NOTE DATE OF SERVICE: 05/22/2024 NAME: LAURA KAYE ACCOUNT: [id number] : 1950 AGE: 73 INTERVAL HISTORY: Patient is 73-year-old woman here for follow-up on squamous cell lung cancer Patient received her first cycle of chemotherapy and did well. Patient cycle chemotherapy cycle was complicated. Patient did not receive her prechemo meds as prescribed and forgot and taken them. Patient was having shortness of breath and hypotension and was sent to emergency room ONCOLOGY HISTORY: DIAGNOSIS: Invasive squamous cell cancer DATE OF DIAGNOSIS: 02/08/2024 STAGE/TNM: Likely stage III based on imaging TREATMENT HISTORY: Care?Plan Start?Date Cycle Day Intent Pembro?Paclitaxel?Carbopla?sq?cell 04/25/2024 1 21 Palliative HISTORY OF PRESENT ILLNESS: 73-year-old female with a new diagnosis of squamous cell lung cancer. Patient is complaining of weight loss. Patient's last scan was in January. Patient was complaining of bronchitis-like symptoms. Patient then was found to have pulmonary nodules and advice was to repeat CT scan. Patient also had 15 pound weight loss. Patient's biopsy now showed squamous cell lung cancer. OTHER MEDICAL HISTORY/CONDITIONS: Lung cancer Asthma Gastritis / gastroentestinal disease Umbilical?hernia?repair?-?20?yrs?ago FAMILY HISTORY: Patient?denies?family?cancer?history. SOCIAL HISTORY: Occupational?History:?Retired?- Education?Level:?Vocational School Graduate Marital?Status:? Tobacco Use:?Smoked 1PP x 10yrs; quit 6 months ago ETOH?Use:?Socailly Drug?Note:?Denies Social?History?Note:?Son?lives?wtih?pt [employer] HISTORY: Menarche?-?Age:?14 Menopause:?Age?57 :?4 Live?Births:?4 Age?1st?:?16 MEDICATIONS: 1. Albuterol Sulfate HFA - 90 mcg/Actuation 1 Puff(s) Twice a Day 2. Benadryl - 25 mg 2 tab 2 tabs po 12 hrs and 6 hrs before chemo 3. Calcium 600 + D(3) - 600-125 mg-unit 1 tab Every other day 4. Compazine - 5 mg 1 tab Daily 5. cyclobenzaprine - 10 mg 1 tab Daily 6. dexAMETHasone - 20 mg 1 tab 1 tab po 12 hrs and 6 hrs before chemo 7. dexamethasone - 4 mg 20 mg Daily 8. HYDROcodone-acetaminophen - 10-325 mg 1 tab q6 9. hydrOXYzine HCl - 10 mg 1 tab Daily 10. montelukast - 10 mg 1 tab Daily 11. Sanborn - 10-325 mg 1 tab Twice a Day 12. omeprazole - 20 mg 1 Capsule Twice a Day 13. ondansetron - 8 mg 1 tab Daily 14. Pepcid - 20 mg 1 tab 1 tab po 12 and 6 hours before chemo 15. Triamcinolone Acetonide (Top) - 0.1 % As directed Medications Last Reconciled by Shani Portillo MA on 05/22/2024 ALLERGIES: No Known Drug Allergies REVIEW OF SYSTEMS: A complete 14-point review of systems was performed and is negative except as noted in interval history. PHYSICAL EXAMINATION: VITAL SIGNS: PAIN: 3 - Between mild and moderate pain ECOG Performance Status: 0 - Asymptomatic and fully active GENERAL APPEARANCE: Appears well, in no apparent distress, appropriately interactive. HEENT: Normocephalic, no temporal wasting, normal conjunctiva, no scleral icterus, normal hearing, lips without lesions, neck normal range of motion. CARDIOVASCULAR: Not assessed. PULMONARY: Bilateral expiratory wheezing EXTREMITIES: No pedal edema or cyanosis. SKIN: Normal skin appearance. NEUROLOGIC: Alert and oriented x4. PSHYCHIATRIC: Appropriate affect, mood normal, behavior normal, intact thought and speech. LABORATORY DATA: I have personally reviewed and interpreted each of the patient?s relevant lab tests, abnormal findings are below: Date 05/15/24 05/16/24 ??WHITE?BLOOD?COUNT?(Thou/mm3) 23.1?H 20.0?H ??RED?BLOOD?COUNT?(Miln/mm3) 4.05 4.02 ??HEMOGLOBIN?(gm/dl) 12.1 11.9?L ??HEMATOCRIT?(%) 37.6 37.3 ??PLATELET?COUNT?(Thou/mm3) 438 385 ??NEUTROPHILS?%,?AUTO?(%) 84?H 95?H ??LYMPH?%,?AUTO?(%) 8?L 4?L ??NEUTROPHILS,?AUTO?(Thou/mm3) 19.3?H 18.9?H ??GLUCOSE,RANDOM?(mg/dL) 90 145?H ??BLOOD?UREA?NITROGEN?(mg/dL) 7?L 10 ??CREATININE?(mg/dL) 0.40?L 0.50?L ??SODIUM?(mmol/L) 138 142 ??POTASSIUM?(mmol/L) 3.7 4.7 ??CHLORIDE?(mmol/L) 100 109?H ??CrCl?(CandG)?(ml/min) 89.60 71.68 ??AST/SGOT?(Unit/L) 15 17 ??ALT/SGPT?(Unit/L) 10 9?L ??ALKALINE?PHOSPHATASE?(Unit/L) 169?H 156?H ??BILIRUBIN,?TOTAL?(mg/dL) 0.4 0.2?L ??PROTEIN?TOTAL?(gm/dl) 6.6 6.7 ??ALBUMIN,?SERUM?(gm/dl) 3.6 3.6 ??GLOBULIN?(gm/dl) 3.0 3.1 ??ALBUMIN/GLOBULIN?RATIO 1.2 1.2 ??CALCIUM,?SERUM?(mg/dL) 9.2 9.4 ??CALCIUM?SERUM?(CORRECTED)?(mg/dL) 9.5 9.7 ASSESSMENT/PLAN: Squamous cell lung cancer likely stage III 03/23/2024-PET CT scan reviewed.Hypermetabolic mediastinal and right internal mammary lymphadenopathy Extensive abnormal hypermetabolic nodular pleural disease surrounding the right lung MRI brain reviewed and shows Negative for acute hemorrhage, mass effect or midline shift No acute infarct No abnormal enhancing cerebellar or cerebral metastatic lesions PFTs shows very low lung function Patient was seen by radiation oncology and not a candidate for radiation or surgery Palliative chemotherapy completed cycle 1 For cycle 2 patient received Keytruda. Patient was receiving Taxol when she was having shortness of breath. Patient did not do her nebulization and received prechemotherapy drugs at home Patient today extensively counseled to be compliant with medication Will have to stop chemotherapy patient does not take medicine as prescribed at home and do not take her COPD medicines at home Patient otherwise has been tolerating the drugs well Imaging after cycle 3 Will try to give her remaining chemotherapy tomorrow Advised to take her dexamethasone prechemo and also COPD medication CT scan chest was reviewed. Patient had atelectasis as had no fever or any sputum production She is clinically better now with no baseline symptoms ORDERS: Order # Description [id number] CBC + Comprehensive Metabolic Panel [id number] Lab Appointment [id number] CBC + Comprehensive Metabolic Panel [id number] Lab Appointment [id number] CBC + Comprehensive Metabolic Panel [id number] Lab Appointment [id number] CBC + Comprehensive Metabolic Panel [id number] Lab Appointment [id number] CBC + Comprehensive Metabolic Panel [id number] Lab Appointment [id number] CBC + Comprehensive Metabolic Panel [id number] Lab Appointment [id number] CBC + Comprehensive Metabolic Panel [id number] Lab Appointment [id number] CBC + Comprehensive Metabolic Panel [id number] Lab Appointment [id number] CBC + Comprehensive Metabolic Panel [id number] Lab Appointment [id number] CBC + Comprehensive Metabolic Panel [id number] Lab Appointment RETURN TO CLINIC: After cycle 3 BILLING AND COMPLIANCE: I reviewed external records from providers outside my specialty as summarized above. I spent a total of 50 minutes on this patient?s care on the day of their visit excluding time spent related to any billed procedures. This time includes time spent with the patient as well as time spent documenting in the medical record, reviewing patients records and tests, obtaining history, placing orders, communicating with other healthcare professionals, counseling the patient, family or caregiver, and/or care coordination for the diagnoses above. Electronically Signed by: {Object.Sanct_ID*PnP.NameFL@M}, {Object.Sanct_ID*PnP.Suffix@U} D: {Object.Sanct_Date} T: {Object.Sanct_Time} CC: Anita?Wayne,? PCP: Anita Black Referring: Anita Black This document was completed utilizing speech recognition software. Grammatical errors, random word insertions, pronoun errors, and incomplete sentences are an occasional consequence of this system due to software limitations, ambient noise, and hardware issues. Any formal questions or concerns about the content, text or information contained within the body of this dictation should be directly addressed to the provider for clarification.
== END 2024-05-22 23:59 | disposition home or self-care (01) ==
LOC: SCTC 10:27
PROVIDERS: PCP Specialist; Referring Provider Specialist; Visit Provider Internal Medicine Hematology & Oncology
DX: Z51.11 Encounter for antineoplastic chemotherapy (principal); C34.11 Malignant neoplasm of upper lobe, right bronchus or lung; J44.9 Chronic obstructive pulmonary disease, unspecified; Z91.148 Patient's other noncompliance with medication regimen for other reason
CPT/HCPCS: 36591; 80053; 84439; 84443; 85025; 96367; 96372; 96375; 96409; 96411; 96413; 96415; 96417; 99212; 99424; 99425; A4216; J1100; J1200; J1453; J1642; J2405; J2506; J3490; J7040; J7050; J9045; J9267; J9271; G0463

== ENCOUNTER → 2024-06-01 | Outpatient (CLI) | payer MEDICARE, SELFPAY ==
--- NOTE | 2024-06-01 10:35 | XR_ITS ---
Examination: Abdomen AP single view Technique: AP portable supine abdomen, single view Exam date and time: June 01, 2024 1108 hrs. Indications: Abdominal pain one year Findings: The film is rotated RPO Kidneys and bladder are opacified with no hydronephrosis Nonobstructive bowel gas pattern No free air Pleural parenchymal disease right base Impression: Nonobstructive bowel gas pattern
--- NOTE | 2024-06-01 10:37 | XR_ITS ---
Examination: CT abdomen with intravenous contrast CT pelvis with intravenous contrast 2-D coronal reconstructions 2-D sagittal reconstructions Date and time of exam:June 01, 2024 1057 hrs. Comparison PET/CT scan March 23, 2024 Indications: Diagnosis lung cancer one month ago, staging. CTDI: vol (mGy) 8.46 DLP: (mGycm) 230 Technique: Multiple axial sections of the abdomen and pelvis have been obtained. 64 slice high-resolution scanner used. 3 mm axial sections have been obtained, post intravenous injection 60 cc [id number] 2-D sagittal, coronal reconstructions obtained. Low dose protocols were performed. One or more of the following dose reduction techniques were used; automated exposure control, adjustment of the mA and/or KV according to patient size, use of iterative reconstruction technique. Findings: Extensive nodular pleural disease surrounding the lower right hemithorax, please see the PET/CT scan report March 23, 2024 No focal liver or splenic lesion Upper abdomen focal defect in the anterior abdominal wall containing transverse colon, the defect measuring 6 cm, no incarcerated bowel Absent gallbladder Mild nodular thickening left adrenal gland No common bile duct stones No pancreatic mass Posterior left renal cyst, 28 mm Aorta normal size No bowel obstruction No diverticulitis No pericecal inflammatory change Retroverted uterus Contracted urinary bladder Moderate osteopenia Impression: Extensive nodular pleural disease surrounding the lower right hemithorax, please see the PET/CT scan report March 23, 2024 No focal liver or splenic lesion No abdominal or pelvic lymphadenopathy
[2024-06-01 10:49] LABS: Collection Type, Urine Clean Catch
[2024-06-01 11:00] LABS: Basophils # (Auto) 0.1 Thou/mm3 (0.0-0.2); Basophils % (Auto) 0 % (0-2.5); Eosinophils # (Auto) 0.1 Thou/mm3 (0.0-0.5); Eosinophils % (Auto) 0 % (0-10); Hematocrit 39.5 % (36.0-46.0); Hemoglobin 12.8 g/dL (12.0-16.0); Immature Granulocytes % (Auto) 5 % (0-0); Immature Granulocytes Auto 2.16 Thou/mm3 (0.00-0.00); Lymphocytes # (Auto) 2.1 Thou/mm3 (1.0-4.8); Lymphocytes % (Auto) 5 % (10-50); Mean Corpuscular HGB Conc 32.4 g/dl (31.0-37.0); Mean Corpuscular Hemoglobin 30.3 pg (25.0-35.0); Mean Corpuscular Volume 93 fL (80-100); Monocytes # (Auto) 2.1 Thou/mm3 (0.0-0.8); Monocytes % (Auto) 5 % (0-12); Neutrophils # (Auto) 36.7 Thou/mm3 (1.8-7.7); Neutrophils % (Auto) 85 % (37-80); Nucleated Red Blood Cell % 0 /100 WBC (0); Platelet Count 247 Thou/mm3 (140-440); RDW Standard Deviation 50.4 fL (36.4-46.3); Red Blood Count 4.23 Miln/mm3 (4.00-5.20)
[2024-06-01 11:05] LABS: White Blood Count 43.2 Thou/mm3 (3.6-11.0)
[2024-06-01 11:24] LABS: Alanine Aminotransferase < 7 U/L (10-49); Albumin, Serum 3.7 gm/dL (3.4-4.8); Albumin/Globulin Ratio 1.3 (1.2-2.2); Alkaline Phosphatase 210 U/L (46-116); Amylase 106 U/L (30-118); Anion Gap 9 (7-16); Aspartate Amino Transferase 14 U/L (0-34); BUN/Creatinine Ratio 25 Ratio (12-20); Bilirubin,Total 0.2 mg/dL (0.3-1.2); Blood Urea Nitrogen 10 mg/dL (9-23); Calcium 9.2 mg/dL (8.3-10.6); Calcium (Corrected) 9.4 mg/dL (8.5-10.1); Carbon Dioxide 28.8 mMol/L (20.0-31.0); Chloride 102 mMol/L (98-107); Creatinine (Component) 0.4 mg/dL (0.6-1.3); Globulin 2.8 gm/dL (2.3-3.5); Glucose 99 mg/dL (74-106); Lipase 19 U/L (12-53); Osmolality,Calculated 278 (275-295); Potassium 3.8 mMol/L (3.4-5.1); Sodium 140 mMol/L (136-145); Total Protein 6.5 gm/dL (5.7-8.2); eGFR > 60 See Note
[2024-06-01 11:39] LABS: Bacteria,Urine Rare; Bilirubin,Urine Negative (Negative); Blood,Urine Negative (Negative); Clarity,Urine Clear (Clear/Hazy); Color,Urine Yellow (Lt Yel-Yel); Glucose, Urine Negative (Negative); Hyaline Casts,Urine < 1 /hpf (0-1); Ketones,Urine Negative (Negative); Leukocyte Esterase,Urine Negative (Negative); Nitrite,Urine Negative (Negative); Protein,Urine 2+ (Neg - Trace); RBC,Urine 6 /hpf (0-3); Specific Gravity,Urine 1.036 (1.001-1.035); Squamous Epithelial Cell,Urine 4 /hpf (0-5); WBC,Urine 6 /hpf (0-5)
[2024-06-01 12:02] LABS: Path Review Blood Smear Sent to Pathologist
== END | disposition home or self-care (01) ==
LOC: CCTX 09:54 → COPL 10:05
PROVIDERS: PCP Specialist; Referring Provider Specialist; Visit Provider Specialist
DX: R10.9 Unspecified abdominal pain (principal); J94.8 Other specified pleural conditions
CPT/HCPCS: 36415; 74018; 74177; 80053; 81001; 82150; 83690; 85025; A4649; Q9967

== ENCOUNTER 2024-06-14 14:21 | Outpatient (RCR) | payer MEDICARE, SELFPAY ==
[2024-05-22 13:51] LABS: Basophils # (Auto) 0.1 Thou/mm3 (0.0-0.2); Basophils % (Auto) 1 % (0-2.5); Eosinophils # (Auto) 0.2 Thou/mm3 (0.0-0.5); Eosinophils % (Auto) 1 % (0-10); Hematocrit 36.1 % (36.0-46.0); Hemoglobin 11.4 g/dL (12.0-16.0); Immature Granulocytes % (Auto) 1 % (0-0); Immature Granulocytes Auto 0.09 Thou/mm3 (0.00-0.00); Lymphocytes # (Auto) 1.7 Thou/mm3 (1.0-4.8); Lymphocytes % (Auto) 11 % (10-50); Mean Corpuscular HGB Conc 31.6 g/dl (31.0-37.0); Mean Corpuscular Hemoglobin 30.1 pg (25.0-35.0); Mean Corpuscular Volume 95 fL (80-100); Monocytes # (Auto) 1.1 Thou/mm3 (0.0-0.8); Monocytes % (Auto) 7 % (0-12); Neutrophils # (Auto) 12.1 Thou/mm3 (1.8-7.7); Neutrophils % (Auto) 79 % (37-80); Nucleated Red Blood Cell % 0 /100 WBC (0); Platelet Count 399 Thou/mm3 (140-440); RDW Standard Deviation 50.5 fL (36.4-46.3); Red Blood Count 3.79 Miln/mm3 (4.00-5.20); White Blood Count 15.4 Thou/mm3 (3.6-11.0)
[2024-05-22 14:11] LABS: Alanine Aminotransferase 11 U/L (10-49); Albumin, Serum 3.5 gm/dL (3.4-4.8); Albumin/Globulin Ratio 1.1 (1.2-2.2); Alkaline Phosphatase 124 U/L (46-116); Anion Gap 9 (7-16); Aspartate Amino Transferase 14 U/L (0-34); BUN/Creatinine Ratio 37 Ratio (12-20); Bilirubin,Total 0.3 mg/dL (0.3-1.2); Blood Urea Nitrogen 11 mg/dL (9-23); Calcium 9.4 mg/dL (8.3-10.6); Calcium (Corrected) 9.8 mg/dL (8.5-10.1); Carbon Dioxide 28.1 mMol/L (20.0-31.0); Chloride 103 mMol/L (98-107); Creatinine (Component) 0.3 mg/dL (0.6-1.3); Globulin 3.2 gm/dL (2.3-3.5); Glucose 66 mg/dL (74-106); Osmolality,Calculated 276 (275-295); Potassium 4.1 mMol/L (3.4-5.1); Sodium 140 mMol/L (136-145); Total Protein 6.7 gm/dL (5.7-8.2); eGFR > 60 See Note
[2024-06-12 14:36] LABS: Alanine Aminotransferase < 7 U/L (10-49); Albumin, Serum 3.3 gm/dL (3.4-4.8); Albumin/Globulin Ratio 1.1 (1.2-2.2); Alkaline Phosphatase 173 U/L (46-116); Anion Gap 8 (7-16); Aspartate Amino Transferase 14 U/L (0-34); BUN/Creatinine Ratio 20 Ratio (12-20); Bilirubin,Total 0.5 mg/dL (0.3-1.2); Blood Urea Nitrogen 8 mg/dL (9-23); Calcium 8.7 mg/dL (8.3-10.6); Calcium (Corrected) 9.3 mg/dL (8.5-10.1); Carbon Dioxide 26.3 mMol/L (20.0-31.0); Chloride 106 mMol/L (98-107); Creatinine (Component) 0.4 mg/dL (0.6-1.3); Globulin 2.9 gm/dL (2.3-3.5); Glucose 87 mg/dL (74-106); Osmolality,Calculated 276 (275-295); Potassium 3.6 mMol/L (3.4-5.1); Sodium 140 mMol/L (136-145); Total Protein 6.2 gm/dL (5.7-8.2); eGFR > 60 See Note
[2024-06-13 07:53] LABS: Basophils % (Auto) 0 % (0-2.5); Eosinophils % (Auto) 0 % (0-10); Hematocrit 34.1 % (36.0-46.0); Hemoglobin 11.2 g/dL (12.0-16.0); Immature Granulocytes % (Auto) 1 % (0-0); Immature Granulocytes Auto 0.13 Thou/mm3 (0.00-0.00); Lymphocytes # (Auto) 1.3 Thou/mm3 (1.0-4.8); Lymphocytes % (Auto) 7 % (10-50); Mean Corpuscular HGB Conc 32.8 g/dl (31.0-37.0); Mean Corpuscular Hemoglobin 30.1 pg (25.0-35.0); Mean Corpuscular Volume 92 fL (80-100); Monocytes # (Auto) 0.1 Thou/mm3 (0.0-0.8); Monocytes % (Auto) 1 % (0-12); Neutrophils % (Auto) 91 % (37-80); Nucleated Red Blood Cell % 0 /100 WBC (0); Platelet Count 394 Thou/mm3 (140-440); Red Blood Count 3.72 Miln/mm3 (4.00-5.20); White Blood Count 17.6 Thou/mm3 (3.6-11.0)
== END 2024-06-21 23:59 | disposition home or self-care (01) ==
LOC: SCTC 14:21
PROVIDERS: PCP Specialist; Referring Provider Specialist; Visit Provider Internal Medicine Hematology & Oncology
DX: Z51.11 Encounter for antineoplastic chemotherapy (principal); C34.11 Malignant neoplasm of upper lobe, right bronchus or lung
CPT/HCPCS: 36591; 80053; 85025; 96367; 96372; 96375; 96413; 96415; 96417; 99211; A4216; J1100; J1453; J1642; J2405; J2506; J3490; J7040; J7050; J9045; J9267; J9271; A9270; G0463

== ENCOUNTER 2024-07-20 13:11 | Outpatient (RCR) | payer MEDICARE, SELFPAY ==
[2024-07-03 15:32] LABS: Basophils # (Auto) 0.1 Thou/mm3 (0.0-0.2); Basophils % (Auto) 1 % (0-2.5); Eosinophils % (Auto) 0 % (0-10); Hematocrit 30.5 % (36.0-46.0); Hemoglobin 9.8 g/dL (12.0-16.0); Immature Granulocytes % (Auto) 1 % (0-0); Immature Granulocytes Auto 0.12 Thou/mm3 (0.00-0.00); Lymphocytes # (Auto) 1.6 Thou/mm3 (1.0-4.8); Lymphocytes % (Auto) 11 % (10-50); Mean Corpuscular HGB Conc 32.1 g/dl (31.0-37.0); Mean Corpuscular Hemoglobin 31.1 pg (25.0-35.0); Mean Corpuscular Volume 97 fL (80-100); Monocytes # (Auto) 1.2 Thou/mm3 (0.0-0.8); Monocytes % (Auto) 8 % (0-12); Neutrophils % (Auto) 80 % (37-80); Nucleated Red Blood Cell % 0 /100 WBC (0); Platelet Count 287 Thou/mm3 (140-440); RDW Standard Deviation 55.2 fL (36.4-46.3); Red Blood Count 3.15 Miln/mm3 (4.00-5.20)
[2024-07-03 16:03] LABS: Alanine Aminotransferase 7 U/L (10-49); Albumin, Serum 3.3 gm/dL (3.4-4.8); Albumin/Globulin Ratio 1.3 (1.2-2.2); Alkaline Phosphatase 146 U/L (46-116); Anion Gap 10 (7-16); Aspartate Amino Transferase 13 U/L (0-34); BUN/Creatinine Ratio 30 Ratio (12-20); Bilirubin,Total 0.3 mg/dL (0.3-1.2); Blood Urea Nitrogen 12 mg/dL (9-23); Calcium 8.1 mg/dL (8.3-10.6); Calcium (Corrected) 8.7 mg/dL (8.5-10.1); Carbon Dioxide 26.1 mMol/L (20.0-31.0); Chloride 104 mMol/L (98-107); Creatinine (Component) 0.4 mg/dL (0.6-1.3); Globulin 2.6 gm/dL (2.3-3.5); Glucose 82 mg/dL (74-106); Osmolality,Calculated 278 (275-295); Potassium 3.6 mMol/L (3.4-5.1); Sodium 140 mMol/L (136-145); Thyroid Stimulating Hormone 0.68 uIU/mL (0.55-4.78); Total Protein 5.9 gm/dL (5.7-8.2); eGFR > 60 See Note
--- NOTE | 2024-07-23 23:28 | CTCFLWUP_ITS ---
Patient: DEBORAH KAYE : 1950 Page 4 of 5 FOLLOW UP NOTE DATE OF SERVICE: 07/20/2024 NAME: DEBORAH KAYE ACCOUNT: [id number] : 1950 AGE: 74 INTERVAL HISTORY: Subjective: Chief Complaint Follow-up for cancer treatment, eye redness noticed this morning History of Present Illness Deborah, a 74-year-old female with a history of gastric bypass and cancer, presents for follow-up of her cancer treatment. She reports improvement in her overall condition since starting chemotherapy. The patient notes that her cancer may be shrinking based on a recent CT scan performed by Dr. Black due to stomach pains. The scan showed that the cancer is getting smaller and hasn't spread. Her stomach pain was attributed to hernias, for which she now uses a binder with good effect. Deborah reports significant improvement in her functional status. She is now able to walk from the car to the front door without becoming short of breath, which she previously couldn't do. She also mentions that she no longer experiences the shortness of breath and tingling pain in her chest that she used to have, which was associated with her cancer. Deborah's weight has been gradually increasing. Her last recorded weights were 93, then 95, and now 95 again. This is an improvement from her condition at the beginning of treatment when she couldn't even sit up in a chair. She reports that her appetite and overall energy have improved, particularly after the third treatment. The patient mentions waking up with redness in one eye this morning. The redness started in one spot and then spread to half of the eye. She denies any itching, pain, or irritation associated with the eye redness. Deborah has completed four treatments of chemotherapy and is now transitioning to maintenance immunotherapy. She reports using Ezequiel Han oil as part of her treatment regimen. The patient expresses interest in scheduling cataract surgery, which she was previously unable to do while undergoing immunotherapy. Medications and Supplements - Keytruda - Used for cancer treatment - Ezequiel Han oil - Used for cancer treatment - Benefits: Improves appetite and sleep Review of Systems General: Positive for weight gain. HEENT: Positive for eye redness, negative for eye itching or irritation. Respiratory: Negative for shortness of breath. Gastrointestinal: Positive for past stomach pain. Musculoskeletal: Positive for hernia-related pain. Objective: Vital Signs - Weight: 95 kg Physical Examination General: Patient appears to be in improved condition compared to previous visits. Alert and able to engage in conversation. HEENT: Right eye noted to have redness in one spot, progressing to half of the eye being red. Laboratory, Imaging, and Diagnostic Test Results - CT scan of abdomen and pelvis (date not specified): - No liver involvement - Large defect in stomach area - PET scan (date not specified): - Results pending - Brain MRI (date not specified): - Results pending ONCOLOGY HISTORY: DIAGNOSIS: Invasive squamous cell cancer DATE OF DIAGNOSIS: 02/08/2024 STAGE/TNM: Likely stage III based on imaging TREATMENT HISTORY: Care?Plan Start?Date Cycle Day Intent Pembro?Paclitaxel?Carbopla?sq?cell 04/25/2024 1 21 Palliative HISTORY OF PRESENT ILLNESS: 74-year-old female with a new diagnosis of squamous cell lung cancer. Patient is complaining of weight loss. Patient's last scan was in January. Patient was complaining of bronchitis-like symptoms. Patient then was found to have pulmonary nodules and advice was to repeat CT scan. Patient also had 15 pound weight loss. Patient's biopsy now showed squamous cell lung cancer. OTHER MEDICAL HISTORY/CONDITIONS: Lung cancer Asthma Gastritis / gastroentestinal disease Umbilical?hernia?repair?-?20?yrs?ago FAMILY HISTORY: Patient?denies?family?cancer?history. SOCIAL HISTORY: Occupational?History:?Retired?- Education?Level:?Vocational School Graduate Marital?Status:? 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 Albuterol Sulfate HFA - 90 mcg/Actuation 1 Puff(s) Twice a Day 2. Benadryl - 25 mg 2 tab 2 tabs po 12 hrs and 6 hrs before chemo 3. Calcium 600 + D(3) - 600-125 mg-unit 1 tab Every other day 4. Compazine - 5 mg 1 tab Daily 5. cyclobenzaprine - 10 mg 1 tab Daily 6. dexamethasone - 4 mg 20 mg Daily 7. dexAMETHasone - 20 mg 1 tab 1 tab po 12 hrs and 6 hrs before chemo 8. HYDROcodone-acetaminophen - 10-325 mg 1 tab q6 9. hydrOXYzine HCl - 10 mg 1 tab Daily 10. montelukast - 10 mg 1 tab Daily 11. Girard - 10-325 mg 1 tab Twice a Day 12. omeprazole - 20 mg 1 Capsule Twice a Day 13. ondansetron - 8 mg 1 tab Daily 14. Pepcid - 20 mg 1 tab 1 tab po 12 and 6 hours before chemo 15. Triamcinolone Acetonide (Top) - 0.1 % As directed Medications Last Reconciled by Alison Thrasher MA on 07/20/2024 ALLERGIES: No Known Drug Allergies REVIEW OF SYSTEMS: A complete 14-point review of systems was performed and is negative except as noted in interval history. PHYSICAL EXAMINATION: VITAL SIGNS: Temperature?98.1, B/P?105/74, Oxygen?Saturation?98% PAIN: 2 - Mild pain ECOG Performance Status: 0 - Asymptomatic and fully active GENERAL APPEARANCE: Appears well, in no apparent distress, appropriately interactive. HEENT: Normocephalic, no temporal wasting, normal conjunctiva, no scleral icterus, normal hearing, lips without lesions, neck normal range of motion. CARDIOVASCULAR: Not assessed. PULMONARY: Bilateral expiratory wheezing EXTREMITIES: No pedal edema or cyanosis. SKIN: Normal skin appearance. NEUROLOGIC: Alert and oriented x4. PSHYCHIATRIC: Appropriate affect, mood normal, behavior normal, intact thought and speech. LABORATORY DATA: I have personally reviewed and interpreted each of the patient?s relevant lab tests, abnormal findings are below: Date 06/12/24 06/13/24 07/03/24 ??WHITE?BLOOD?COUNT?(Thou/mm3) ? 17.6?H 15.0?H ??RED?BLOOD?COUNT?(Miln/mm3) ? 3.72?L 3.15?L ??HEMOGLOBIN?(gm/dl) ? 11.2?L 9.8?L ??HEMATOCRIT?(%) ? 34.1?L 30.5?L ??PLATELET?COUNT?(Thou/mm3) ? 394 287 ??NEUTROPHILS?%,?AUTO?(%) ? 91?H 80 ??LYMPH?%,?AUTO?(%) ? 7?L 11 ??NEUTROPHILS,?AUTO?(Thou/mm3) ? 16.0?H 12.0?H ??GLUCOSE,RANDOM?(mg/dL) 87 ? 82 ??BLOOD?UREA?NITROGEN?(mg/dL) 8?L ? 12 ??CREATININE?(mg/dL) 0.40?L ? 0.40?L ??SODIUM?(mmol/L) 140 ? 140 ??POTASSIUM?(mmol/L) 3.6 ? 3.6 ??CHLORIDE?(mmol/L) 106 ? 104 ??CrCl?(CandG)?(ml/min) 90.71 ? 84.84 ??AST/SGOT?(Unit/L) 14 ? 13 ??ALT/SGPT?(Unit/L) <?7?L ? 7?L ??ALKALINE?PHOSPHATASE?(Unit/L) 173?H ? 146?H ??BILIRUBIN,?TOTAL?(mg/dL) 0.5 ? 0.3 ??PROTEIN?TOTAL?(gm/dl) 6.2 ? 5.9 ??ALBUMIN,?SERUM?(gm/dl) 3.3?L ? 3.3?L ??GLOBULIN?(gm/dl) 2.9 ? 2.6 ??ALBUMIN/GLOBULIN?RATIO 1.1?L ? 1.3 ??CALCIUM,?SERUM?(mg/dL) 8.7 ? 8.1?L ??CALCIUM?SERUM?(CORRECTED)?(mg/dL) 9.3 ? 8.7 ASSESSMENT/PLAN: Squamous cell lung cancer likely stage III 03/23/2024-PET CT scan reviewed.Hypermetabolic mediastinal and right internal mammary lymphadenopathy Extensive abnormal hypermetabolic nodular pleural disease surrounding the right lung MRI brain reviewed and shows Negative for acute hemorrhage, mass effect or midline shift No acute infarct No abnormal enhancing cerebellar or cerebral metastatic lesions PFTs shows very low lung function Patient was seen by radiation oncology and not a candidate for radiation or surgery Palliative chemotherapy completed cycle 1 For cycle 2 patient received Keytruda. Patient was receiving Taxol when she was having shortness of breath. Patient did not do her nebulization and received prechemotherapy drugs at home Patient today extensively counseled to be compliant with medication Will have to stop chemotherapy patient does not take medicine as prescribed at home and do not take her COPD medicines at home Patient otherwise has been tolerating the drugs well Imaging after cycle 3 Will try to give her remaining chemotherapy tomorrow Advised to take her dexamethasone prechemo and also COPD medication CT scan chest was reviewed. Patient had atelectasis as had no fever or any sputum production She is clinically better now with no baseline symptoms Assessment and Plan: Deborah, a 74-year-old female with a history of gastric bypass and cancer, presents for follow-up after completing four treatments of chemotherapy and is now transitioning to maintenance immunotherapy. Metastatic Cancer Assessment: Patient has completed four treatments of chemotherapy and is now transitioning to maintenance immunotherapy. Recent CT scan of abdomen and pelvis showed no liver involvement but revealed a large defect in the stomach area. Dr. Black reported that the cancer is shrinking and has not spread. Patient's clinical status has significantly improved since initial presentation, with increased energy, improved appetite, and weight gain. Current weight is 95 lbs, up from 93 lbs, but still below her pre-cancer weight of 116 lbs. Patient reports resolution of previous cancer-related symptoms such as shortness of breath and chest pain. Plan: - Order PET scan to assess treatment response and determine if additional chemotherapy is needed - Order brain MRI (to be performed every 6 months) - Continue Keytruda (pembrolizumab) for maintenance immunotherapy - Administer as 15-minute infusion instead of previous 3-hour infusion - Schedule follow-up appointment to review PET scan and brain MRI results - Encourage continued oral intake to support weight gain Hernias Assessment: Patient reports abdominal pain attributed to hernias. A binder has been provided and is effective in managing symptoms. Plan: - Continue use of abdominal binder, especially during movement and walking - Remove binder when lying down - Defer surgical intervention at this time due to patient's overall condition Cataract Assessment: Patient is interested in cataract surgery, which was previously deferred due to ongoing cancer treatment. Plan: - Patient may schedule cataract surgery in 1-2 months, now that chemotherapy is completed Subconjunctival Hemorrhage Assessment: Patient presents with acute onset of redness in one eye, noticed this morning. No associated pain, itching, or irritation. Given the sudden onset and lack of symptoms, this is likely a subconjunctival hemorrhage rather than an infection. Plan: - Reassure patient about benign nature of condition - Advise to monitor for any changes or development of symptoms ORDERS: Order # Description [id number] CBC + Comprehensive Metabolic Panel [id number] Lab Appointment [id number] CBC + Comprehensive Metabolic Panel [id number] Lab Appointment [id number] CBC + Comprehensive Metabolic Panel [id number] Lab Appointment [id number] CBC + Comprehensive Metabolic Panel [id number] Lab Appointment [id number] CBC + Comprehensive Metabolic Panel [id number] Lab Appointment [id number] CBC + Comprehensive Metabolic Panel [id number] Lab Appointment [id number] CBC + Comprehensive Metabolic Panel [id number] Lab Appointment [id number] CBC + Comprehensive Metabolic Panel [id number] Lab Appointment RETURN TO CLINIC: BILLING AND COMPLIANCE: I reviewed external records from providers outside my specialty as summarized above. I spent a total of 50 minutes on this patient?s care on the day of their visit excluding time spent related to any billed procedures. This time includes time spent with the patient as well as time spent documenting in the medical record, reviewing patients records and tests, obtaining history, placing orders, communicating with other healthcare professionals, counseling the patient, family or caregiver, and/or care coordination for the diagnoses above. Electronically Signed by: {Object.Sanct_ID*PnP.NameFL@M}, {Object.Sanct_ID*PnP.Suffix@U} D: {Object.Sanct_Date} T: {Object.Sanct_Time} CC: Anita?DUNG Black PCP: Anita Black Referring: Anita Black This document was completed utilizing speech recognition software. Grammatical errors, random word insertions, pronoun errors, and incomplete sentences are an occasional consequence of this system due to software limitations, ambient noise, and hardware issues. Any formal questions or concerns about the content, text or information contained within the body of this dictation should be directly addressed to the provider for clarification.
== END 2024-07-22 23:59 | disposition home or self-care (01) ==
LOC: SCTC 13:11
PROVIDERS: PCP Specialist; Referring Provider Specialist; Visit Provider Internal Medicine Hematology & Oncology
DX: Z51.11 Encounter for antineoplastic chemotherapy (principal); C34.11 Malignant neoplasm of upper lobe, right bronchus or lung; J44.9 Chronic obstructive pulmonary disease, unspecified; Z98.84 Bariatric surgery status; K46.9 Unspecified abdominal hernia without obstruction or gangrene; H26.9 Unspecified cataract; H11.31 Conjunctival hemorrhage, right eye
CPT/HCPCS: 36591; 80053; 84443; 85025; 96367; 96372; 96375; 96413; 96415; 96417; 96549; 99212; 99213; A4216; J1100; J1453; J1642; J2405; J2506; J3490; J7040; J7050; J9045; J9267; J9271; A9270; G0463

== ENCOUNTER 2024-08-15 07:24 | Outpatient (RCR) | payer MEDICARE, SELFPAY ==
[2024-07-24 12:00] LABS: Basophils # (Auto) 0.1 Thou/mm3 (0.0-0.2); Basophils % (Auto) 0 % (0-2.5); Eosinophils % (Auto) 0 % (0-10); Hematocrit 29.5 % (36.0-46.0); Hemoglobin 9.7 g/dL (12.0-16.0); Immature Granulocytes % (Auto) 1 % (0-0); Immature Granulocytes Auto 0.11 Thou/mm3 (0.00-0.00); Lymphocytes # (Auto) 1.4 Thou/mm3 (1.0-4.8); Lymphocytes % (Auto) 8 % (10-50); Mean Corpuscular HGB Conc 32.9 g/dl (31.0-37.0); Mean Corpuscular Hemoglobin 31.5 pg (25.0-35.0); Mean Corpuscular Volume 96 fL (80-100); Monocytes # (Auto) 1.4 Thou/mm3 (0.0-0.8); Monocytes % (Auto) 8 % (0-12); Neutrophils # (Auto) 15.2 Thou/mm3 (1.8-7.7); Neutrophils % (Auto) 84 % (37-80); Nucleated Red Blood Cell % 0 /100 WBC (0); Platelet Count 332 Thou/mm3 (140-440); RDW Standard Deviation 57.8 fL (36.4-46.3); Red Blood Count 3.08 Miln/mm3 (4.00-5.20); White Blood Count 18.1 Thou/mm3 (3.6-11.0)
[2024-07-24 12:16] LABS: Alanine Aminotransferase 8 U/L (10-49); Albumin, Serum 3.3 gm/dL (3.4-4.8); Albumin/Globulin Ratio 1.3 (1.2-2.2); Alkaline Phosphatase 136 U/L (46-116); Anion Gap 10 (7-16); Aspartate Amino Transferase 14 U/L (0-34); BUN/Creatinine Ratio 33 Ratio (12-20); Bilirubin,Total 0.4 mg/dL (0.3-1.2); Blood Urea Nitrogen 13 mg/dL (9-23); Calcium 8.2 mg/dL (8.3-10.6); Calcium (Corrected) 8.8 mg/dL (8.5-10.1); Carbon Dioxide 27.6 mMol/L (20.0-31.0); Chloride 105 mMol/L (98-107); Creatinine (Component) 0.4 mg/dL (0.6-1.3); Globulin 2.5 gm/dL (2.3-3.5); Glucose 86 mg/dL (74-106); Osmolality,Calculated 284 (275-295); Potassium 3.3 mMol/L (3.4-5.1); Sodium 143 mMol/L (136-145); Thyroid Stimulating Hormone 0.75 uIU/mL (0.55-4.78); Total Protein 5.8 gm/dL (5.7-8.2); eGFR > 60 See Note
[2024-08-14 14:43] LABS: Basophils # (Auto) 0.1 Thou/mm3 (0.0-0.2); Basophils % (Auto) 1 % (0-2.5); Eosinophils # (Auto) 0.2 Thou/mm3 (0.0-0.5); Eosinophils % (Auto) 2 % (0-10); Hematocrit 31.6 % (36.0-46.0); Hemoglobin 10.1 g/dL (12.0-16.0); Immature Granulocytes % (Auto) 0 % (0-0); Immature Granulocytes Auto 0.02 Thou/mm3 (0.00-0.00); Lymphocytes # (Auto) 1.4 Thou/mm3 (1.0-4.8); Lymphocytes % (Auto) 16 % (10-50); Mean Corpuscular Hemoglobin 32.3 pg (25.0-35.0); Mean Corpuscular Volume 101 fL (80-100); Monocytes # (Auto) 0.9 Thou/mm3 (0.0-0.8); Monocytes % (Auto) 10 % (0-12); Neutrophils # (Auto) 5.8 Thou/mm3 (1.8-7.7); Neutrophils % (Auto) 70 % (37-80); Nucleated Red Blood Cell % 0 /100 WBC (0); Platelet Count 316 Thou/mm3 (140-440); Red Blood Count 3.13 Miln/mm3 (4.00-5.20); White Blood Count 8.3 Thou/mm3 (3.6-11.0)
[2024-08-14 15:07] LABS: Alanine Aminotransferase 10 U/L (10-49); Albumin, Serum 2.9 gm/dL (3.4-4.8); Albumin/Globulin Ratio 1.2 (1.2-2.2); Alkaline Phosphatase 100 U/L (46-116); Anion Gap 12 (7-16); Aspartate Amino Transferase 17 U/L (0-34); BUN/Creatinine Ratio 30 Ratio (12-20); Bilirubin,Total 0.3 mg/dL (0.3-1.2); Blood Urea Nitrogen 12 mg/dL (9-23); Calcium 8.1 mg/dL (8.3-10.6); Carbon Dioxide 25.9 mMol/L (20.0-31.0); Chloride 103 mMol/L (98-107); Creatinine (Component) 0.4 mg/dL (0.6-1.3); Globulin 2.4 gm/dL (2.3-3.5); Glucose 136 mg/dL (74-106); Osmolality,Calculated 282 (275-295); Potassium 3.6 mMol/L (3.4-5.1); Sodium 141 mMol/L (136-145); Thyroid Stimulating Hormone 0.59 uIU/mL (0.55-4.78); Total Protein 5.3 gm/dL (5.7-8.2); eGFR > 60 See Note
== END 2024-08-21 23:59 | disposition home or self-care (01) ==
LOC: SCTC 07:24
PROVIDERS: Internal Medicine Hematology & Oncology; PCP Specialist; Referring Provider Specialist; Visit Provider Radiology Therapeutic Radiology
DX: Z51.11 Encounter for antineoplastic chemotherapy (principal); C34.11 Malignant neoplasm of upper lobe, right bronchus or lung; K46.9 Unspecified abdominal hernia without obstruction or gangrene; H11.30 Conjunctival hemorrhage, unspecified eye
CPT/HCPCS: 36591; 80053; 84443; 85025; 96413; 99211; A4216; J1642; J7040; J7050; J9271; G0463

== ENCOUNTER 2024-09-05 08:19 | Outpatient (RCR) | payer MEDICARE, SELFPAY ==
[2024-09-04 12:32] LABS: Basophils # (Auto) 0.0 Thou/mm3 (0.0-0.2); Basophils % (Auto) 0 % (0-2.5); Eosinophils # (Auto) 0.0 Thou/mm3 (0.0-0.5); Eosinophils % (Auto) 0 % (0-10); Hematocrit 31.9 % (36.0-46.0); Hemoglobin 10.4 g/dL (12.0-16.0); Immature Granulocytes Auto 0.06 Thou/mm3 (0.00-0.00); Lymphocytes # (Auto) 2.2 Thou/mm3 (1.0-4.8); Lymphocytes % (Auto) 16 % (10-50); Mean Corpuscular HGB Conc 32.6 g/dl (31.0-37.0); Mean Corpuscular Hemoglobin 32.2 pg (25.0-35.0); Mean Corpuscular Volume 99 fL (80-100); Monocytes # (Auto) 0.9 Thou/mm3 (0.0-0.8); Monocytes % (Auto) 7 % (0-12); Neutrophils # (Auto) 10.5 Thou/mm3 (1.8-7.7); Neutrophils % (Auto) 77 % (37-80); Nucleated Red Blood Cell # 0.00 Thou/mm3 (0.00-0.00); Nucleated Red Blood Cell % 0 /100 WBC (0); Platelet Count 401 Thou/mm3 (140-440); RDW Standard Deviation 49.2 fL (36.4-46.3); Red Blood Count 3.23 Miln/mm3 (4.00-5.20); White Blood Count 13.7 Thou/mm3 (3.6-11.0)
[2024-09-04 12:45] LABS: Alanine Aminotransferase 28 U/L (10-49); Albumin, Serum 2.8 gm/dL (3.4-4.8); Albumin/Globulin Ratio 1.0 (1.2-2.2); Alkaline Phosphatase 96 U/L (46-116); Anion Gap 12 (7-16); Aspartate Amino Transferase 24 U/L (0-34); BUN/Creatinine Ratio 23 Ratio (12-20); Bilirubin,Total 0.3 mg/dL (0.3-1.2); Blood Urea Nitrogen 9 mg/dL (9-23); Calcium 8.5 mg/dL (8.3-10.6); Calcium (Corrected) 9.5 mg/dL (8.5-10.1); Carbon Dioxide 28.8 mMol/L (20.0-31.0); Chloride 102 mMol/L (98-107); Creatinine (Component) 0.4 mg/dL (0.6-1.3); Globulin 2.7 gm/dL (2.3-3.5); Glucose 79 mg/dL (74-106); Osmolality,Calculated 282 (275-295); Potassium 3.4 mMol/L (3.4-5.1); Sodium 143 mMol/L (136-145); Thyroid Stimulating Hormone 2.91 uIU/mL (0.55-4.78); Total Protein 5.5 gm/dL (5.7-8.2); eGFR > 60 See Note
--- NOTE | 2024-09-11 00:38 | CTCFLWUP_ITS ---
Patient: DEBORAH KAYE : 1950 Page 5 of 6 FOLLOW UP NOTE DATE OF SERVICE: 08/24/2024 NAME: DEBORAH KAYE ACCOUNT: [id number] : 1950 AGE: 74 INTERVAL HISTORY: Deborah, a female with cancer history, presented with bilateral foot edema and weight gain. Her medical history includes completed chemotherapy and ongoing Keytruda immunotherapy maintenance. Physical examination revealed bilateral lower extremity edema improving with elevation and early hair regrowth. She was diagnosed with dependent edema and advised to use compression stockings, elevate legs, and avoid short socks. Leg circumference measurements were taken with plans to reassess in 4 weeks. A lymphedema pump was considered pending approval. PET-CT, brain MRI, and Anna testing were ordered for cancer evaluation with follow-up scheduled in 2 months. Subjective: Chief Complaint Bilateral foot edema, worse in the morning, weight gain History of Present Illness Deborah is a female patient with a history of cancer, currently undergoing immunotherapy treatment with Keytruda. She presents today with concerns about edema in her feet. The patient reports experiencing significant edema in both feet this morning. The swelling improved with elevation, eventually affecting only one foot. By the time of the visit, the edema had further decreased. The patient's daughter notes that Deborah has been gaining weight. Deborah is currently on maintenance therapy with Keytruda, an immunotherapy treatment administered every 30 minutes. She has completed her chemotherapy regimen. The patient's hair is starting to grow back following her cancer treatment, with her daughter noting that some hair remained throughout the treat ment and new growth is now visible. The patient is experiencing dependent edema in her lower extremities. The swelling is not causing pain, and there is no significant difference in swelling between the legs. The edema appears to be impacting the patient's comfort and possibly her mobility, as evidenced by the discussion about compression stockings and potential need for a massage machine. Medications and Supplements - Keytruda - 30-minute infusion - Immunotherapy maintenance treatment Review of Systems General: Positive for weight gain. Skin: Positive for hair loss, with some regrowth noted. Cardiovascular: Positive for bilateral lower extremity edema, improved with elevation. Objective: Physical Examination Musculoskeletal: Bilateral lower extremity edema noted, more pronounced in one leg. Edema appears to be improving with elevation. Skin: Hair regrowth observed on scalp. Objective: Vital Signs - Weight: 95 kg Physical Examination General: Patient appears to be in improved condition compared to previous visits. Alert and able to engage in conversation. HEENT: Right eye noted to have redness in one spot, progressing to half of the eye being red. Laboratory, Imaging, and Diagnostic Test Results - CT scan of abdomen and pelvis (date not specified): - No liver involvement - Large defect in stomach area - PET scan (date not specified): - Results pending - Brain MRI (date not specified): - Results pending General: Positive for weight gain. HEENT: Positive for eye redness, negative for eye itching or irritation. Respiratory: Negative for shortness of breath. Gastrointestinal: Positive for past stomach pain. Musculoskeletal: Positive for hernia-related pain. ONCOLOGY HISTORY: DIAGNOSIS: Invasive squamous cell cancer DATE OF DIAGNOSIS: 02/08/2024 STAGE/TNM: Likely stage III based on imaging TREATMENT HISTORY: Care?Plan Start?Date Cycle Day Intent Pembro?Paclitaxel?Carbopla?sq?cell 04/25/2024 1 21 Palliative HISTORY OF PRESENT ILLNESS: 74-year-old female with a new diagnosis of squamous cell lung cancer. Patient is complaining of weight loss. Patient's last scan was in January. Patient was complaining of bronchitis-like symptoms. Patient then was found to have pulmonary nodules and advice was to repeat CT scan. Patient also had 15 pound weight loss. Patient's biopsy now showed squamous cell lung cancer. OTHER MEDICAL HISTORY/CONDITIONS: Lung cancer Asthma Gastritis / gastroentestinal disease Umbilical?hernia?repair?-?20?yrs?ago FAMILY HISTORY: Patient?denies?family?cancer?history. SOCIAL HISTORY: Occupational?History:?Retired?- Education?Level:?Vocational School Graduate Marital?Status:? Tobacco Use:?Smoked 1PP x 10yrs; quit 6 months ago ETOH?Use:?Socailly Drug?Note:?Denies Social?History?Note:?Son?lives?wtih?pt [employer] HISTORY: Menarche?-?Age:?14 Menopause:?Age?57 :?4 Live?Births:?4 Age?1st?:?16 MEDICATIONS: 1. Albuterol Sulfate HFA - 90 mcg/Actuation 1 Puff(s) Twice a Day 2. Benadryl - 25 mg 2 tab 2 tabs po 12 hrs and 6 hrs before chemo 3. Calcium 600 + D(3) - 600-125 mg-unit 1 tab Every other day 4. Compazine - 5 mg 1 tab Daily 5. cyclobenzaprine - 10 mg 1 tab Daily 6. dexamethasone - 4 mg 20 mg Daily 7. dexAMETHasone - 20 mg 1 tab 1 tab po 12 hrs and 6 hrs before chemo 8. HYDROcodone-acetaminophen - 10-325 mg 1 tab q6 9. hydrOXYzine HCl - 10 mg 1 tab Daily 10. montelukast - 10 mg 1 tab Daily 11. [place] - 10-325 mg 1 tab Twice a Day 12. omeprazole - 20 mg 1 Capsule Twice a Day 13. ondansetron - 8 mg 1 tab Daily 14. oxyCODONE-acetaminophen - 10-325 mg 1 tab q6 15. Pepcid - 20 mg 1 tab 1 tab po 12 and 6 hours before chemo 16. Triamcinolone Acetonide (Top) - 0.1 % As directed Medications Last Reconciled by Alison Thrasher MA on 08/24/2024 ALLERGIES: No Known Drug Allergies REVIEW OF SYSTEMS: A complete 14-point review of systems was performed and is negative except as noted in interval history. PHYSICAL EXAMINATION: VITAL SIGNS: Temperature?99.4, B/P?107/76, Oxygen?Saturation?97% PAIN: 2 - Mild pain ECOG Performance Status: 0 - Asymptomatic and fully active GENERAL APPEARANCE: Appears well, in no apparent distress, appropriately interactive. HEENT: Normocephalic, no temporal wasting, normal conjunctiva, no scleral icterus, normal hearing, lips without lesions, neck normal range of motion. CARDIOVASCULAR: Not assessed. PULMONARY: Bilateral expiratory wheezing EXTREMITIES: No pedal edema or cyanosis. SKIN: Normal skin appearance. NEUROLOGIC: Alert and oriented x4. PSHYCHIATRIC: Appropriate affect, mood normal, behavior normal, intact thought and speech. LABORATORY DATA: I have personally reviewed and interpreted each of the patient?s relevant lab tests, abnormal findings are below: Date 08/14/24 09/04/24 ??WHITE?BLOOD?COUNT?(Thou/mm3) 8.3 13.7?H ??RED?BLOOD?COUNT?(Miln/mm3) 3.13?L 3.23?L ??HEMOGLOBIN?(gm/dl) 10.1?L 10.4?L ??HEMATOCRIT?(%) 31.6?L 31.9?L ??PLATELET?COUNT?(Thou/mm3) 316 401 ??NEUTROPHILS?%,?AUTO?(%) 70 77 ??LYMPH?%,?AUTO?(%) 16 16 ??NEUTROPHILS,?AUTO?(Thou/mm3) 5.8 10.5?H ??GLUCOSE,RANDOM?(mg/dL) 136?H 79 ??BLOOD?UREA?NITROGEN?(mg/dL) 12 9 ??CREATININE?(mg/dL) 0.40?L 0.40?L ??SODIUM?(mmol/L) 141 143 ??POTASSIUM?(mmol/L) 3.6 3.4 ??CHLORIDE?(mmol/L) 103 102 ??CrCl?(CandG)?(ml/min) 84.66 93.04 ??AST/SGOT?(Unit/L) 17 24 ??ALT/SGPT?(Unit/L) 10 28 ??ALKALINE?PHOSPHATASE?(Unit/L) 100 96 ??BILIRUBIN,?TOTAL?(mg/dL) 0.3 0.3 ??PROTEIN?TOTAL?(gm/dl) 5.3?L 5.5?L ??ALBUMIN,?SERUM?(gm/dl) 2.9?L 2.8?L ??GLOBULIN?(gm/dl) 2.4 2.7 ??ALBUMIN/GLOBULIN?RATIO 1.2 1.0?L ??CALCIUM,?SERUM?(mg/dL) 8.1?L 8.5 ??CALCIUM?SERUM?(CORRECTED)?(mg/dL) 9.0 9.5 ASSESSMENT/PLAN: Squamous cell lung cancer likely stage III 03/23/2024-PET CT scan reviewed.Hypermetabolic mediastinal and right internal mammary lymphadenopathy Extensive abnormal hypermetabolic nodular pleural disease surrounding the right lung MRI brain reviewed and shows Negative for acute hemorrhage, mass effect or midline shift No acute infarct No abnormal enhancing cerebellar or cerebral metastatic lesions PFTs shows very low lung function Patient was seen by radiation oncology and not a candidate for radiation or surgery Palliative chemotherapy completed Patient has completed chemotherapy and is now on maintenance immunotherapy with Keytruda (pembrolizumab). Hair regrowth has begun, indicating response to treatment. A PET-CT scan and brain MRI have been ordered for disease evaluation but have not yet been completed. Natira testing (likely referring to [employer], a company that provides personalized cancer monitoring) was also ordered but has not been performed due to delays. Plan: - Continue Keytruda (pembrolizumab) immunotherapy - Await completion of ordered PET-CT scan and brain MRI - Follow up on Natira (Anna) testing - Schedule follow-up appointment in 2 months or sooner if imaging studies are completed earlier Bilateral lower extremity edema Assessment: Patient presents with bilateral lower extremity edema, more pronounced in the morning and improving with elevation. The edema is assessed as dependent edema and is not currently causing pain. There is no significant asymmetry between the legs to suggest deep vein thrombosis. Plan: - Recommend compression stockings (long, strong socks) - Educate on leg elevation when resting - Measure leg circumference today and repeat in 4 weeks - Consider lymphedema pump pending approval, based on measurements - Avoid short socks; recommend longer socks for better circulation and warmth Weight gain Assessment: Patient reports recent weight gain, which may be related to fluid retention or other factors associated with cancer treatment. Plan: - Monitor weight at follow-up appointments - Assess for correlation with edema and overall health status ORDERS: Order # Description [id number] CBC + Comprehensive Metabolic Panel [id number] Lab Appointment [id number] CBC + Comprehensive Metabolic Panel [id number] Lab Appointment [id number] CBC + Comprehensive Metabolic Panel [id number] Lab Appointment [id number] CBC + Comprehensive Metabolic Panel [id number] Lab Appointment [id number] CBC + Comprehensive Metabolic Panel [id number] Lab Appointment RETURN TO CLINIC: I reviewed the diagnosis, prognosis, and recommended treatment/procedure options with the patient (and/or their legal provider service representative), including the potential benefits, risks, side effects and alternative therapies. We also discussed the option of no treatment and the possibility of clinical trial participation, if applicable. All questions were addressed, and they demonstrated understanding. They provided informed consent to proceed with the proposed plan of care. BILLING AND COMPLIANCE: I reviewed external records from providers outside my specialty as summarized above. I spent a total of 50 minutes on this patient?s care on the day of their visit excluding time spent related to any billed procedures. This time includes time spent with the patient as well as time spent documenting in the medical record, reviewing patients records and tests, obtaining history, placing orders, communicating with other healthcare professionals, counseling the patient, family or caregiver, and/or care coordination for the diagnoses above. Electronically Signed by: {Object.Sanct_ID*PnP.NameFL@M}, {Object.Sanct_ID*PnP.Suffix@U} D: {Object.Sanct_Date} T: {Object.Sanct_Time} CC: Anita?Wayne,DUNG PCP: Anita Black Referring: Jaison Frost This document was completed utilizing speech recognition software. Grammatical errors, random word insertions, pronoun errors, and incomplete sentences are an occasional consequence of this system due to software limitations, ambient noise, and hardware issues. Any formal questions or concerns about the content, text or information contained within the body of this dictation should be directly addressed to the provider for clarification.
== END 2024-09-21 23:59 | disposition home or self-care (01) ==
LOC: SCTC 08:19
PROVIDERS: PCP Specialist; Referring Provider Internal Medicine Hematology & Oncology; Visit Provider Internal Medicine Hematology & Oncology
DX: Z51.11 Encounter for antineoplastic chemotherapy (principal); C34.11 Malignant neoplasm of upper lobe, right bronchus or lung; R60.0 Localized edema; R63.5 Abnormal weight gain; Z68.1 Body mass index [BMI] 19.9 or less, adult
CPT/HCPCS: 36591; 80053; 84443; 85025; 96413; 99212; A4216; J1642; J7040; J7050; J9271; G0463

== ENCOUNTER → 2024-10-03 | Outpatient (CLI) | payer MEDICARE, SELFPAY ==
--- NOTE | 2024-10-03 10:15 | XR_ITS ---
EXAMINATION: PET/CT FUSION SKULL TO THIGH EXAM DATE AND TIME: October 03, 2024 1101 hours Comparison PET/CT scan March 23, 2024, CT abdomen pelvis June 01, 2024 INDICATIONS: Diagnosis lung cancer, restaging CTDI:vol (mGy) 1.74 DLP: (mGycm) 137.39 PROCEDURE: 13.7 mCi FDG was administered intravenously To allow for distribution and uptake of radiotracer, the patient was allowed to rest quietly in a shielded room. Imaging was performed on an integrated 16-slice PET/CT scanner, with scanning from the skull base to the mid thigh. Serum blood glucose at the time of the injection was measured 111 mg/dL. CT scanning was performed without oral or intravenous contrast material. FINDINGS: Head and Neck: There is no barbara hypermetabolism in the neck. The visualized portions of the brain are normal in appearance on CT. Chest: Progression of hypermetabolic pleural disease right hemithorax compared to the prior PET CT scan The hypermetabolic pleural mass in the upper medial posterior right hemithorax now measures 4.8 x 4.0 cm compared to 3.3 x 2.0 cm and is destroying the T6 vertebral body extending into the spinal canal The hypermetabolic pleural tumor is also destroying the T11 posterior right rib and in the anterior right lateral margin of the T11 vertebral body compared to the prior PET/CT scan The pleural disease posterior right hemithorax is increased in thickness, 17 mm compared to 11 mm Interval osseous metastatic lesion destroying the right second anterior rib More pronounced destruction right seventh rib and eighth rib posteriorly Posterior hypermetabolic inferior pleural mass now measures 9 cm in thickness compared to 2 cm on March 23, 2024 Enlarging hypermetabolic right internal mammary lymph node 26 mm compared to 14 mm on the prior study Abdomen and Pelvis: 23 mm, 10 mm, 14 mm hypermetabolic lateral right lobe liver lesions Hypermetabolic 28 mm left adrenal metastasis Hypermetabolic 14 mm right paracaval lymph node Musculoskeletal: Marrow uptake is within normal range. IMPRESSION: Comparison made to PET CT scan March 23, 2024: Marked progression of right hemithorax hypermetabolic tumor as above Interval marked bone destruction involving the T6 vertebral body, hypermetabolic tumor extending into the spinal canal, hypermetabolic tumor also destroying the T11 right lateral vertebral body margin as well as the T11 rib, recommend MRI thoracic spine follow-up pre and postcontrast to exclude thoracic cord compression Progression of metastatic hypermetabolic rib metastasis Enlarging right internal metastatic mammary lymph node. Interval multiple hypermetabolic hepatic metastases Interval 28 mm hypermetabolic left adrenal metastasis Interval hypermetabolic 14 mm right paracaval lymph node
== END | disposition home or self-care (01) ==
PROVIDERS: PCP Specialist; Referring Provider Internal Medicine Hematology & Oncology; Visit Provider Internal Medicine Hematology & Oncology
DX: C78.7 Secondary malignant neoplasm of liver and intrahepatic bile duct (principal); C79.51 Secondary malignant neoplasm of bone; C79.81 Secondary malignant neoplasm of breast; C79.72 Secondary malignant neoplasm of left adrenal gland; C34.11 Malignant neoplasm of upper lobe, right bronchus or lung
CPT/HCPCS: 78815; A9552

== ENCOUNTER 2024-10-10 10:14 | Outpatient (RCR) | payer MEDICARE, SELFPAY ==
[2024-09-25 11:10] LABS: Basophils # (Auto) 0.1 Thou/mm3 (0.0-0.2); Basophils % (Auto) 1 % (0-2.5); Eosinophils # (Auto) 0.1 Thou/mm3 (0.0-0.5); Eosinophils % (Auto) 1 % (0-10); Hematocrit 32.2 % (36.0-46.0); Hemoglobin 10.4 g/dL (12.0-16.0); Immature Granulocytes Auto 0.02 Thou/mm3 (0.00-0.00); Lymphocytes # (Auto) 1.2 Thou/mm3 (1.0-4.8); Lymphocytes % (Auto) 17 % (10-50); Mean Corpuscular HGB Conc 32.3 g/dl (31.0-37.0); Mean Corpuscular Hemoglobin 32.4 pg (25.0-35.0); Mean Corpuscular Volume 100 fL (80-100); Monocytes # (Auto) 0.8 Thou/mm3 (0.0-0.8); Monocytes % (Auto) 11 % (0-12); Neutrophils # (Auto) 4.9 Thou/mm3 (1.8-7.7); Neutrophils % (Auto) 70 % (37-80); Nucleated Red Blood Cell # 0.00 Thou/mm3 (0.00-0.00); Nucleated Red Blood Cell % 0 /100 WBC (0); Platelet Count 322 Thou/mm3 (140-440); RDW Standard Deviation 47.9 fL (36.4-46.3); Red Blood Count 3.21 Miln/mm3 (4.00-5.20); White Blood Count 7.0 Thou/mm3 (3.6-11.0)
[2024-09-25 11:27] LABS: Alanine Aminotransferase 14 U/L (10-49); Albumin, Serum 3.1 gm/dL (3.4-4.8); Albumin/Globulin Ratio 1.2 (1.2-2.2); Alkaline Phosphatase 115 U/L (46-116); Anion Gap 12 (7-16); Aspartate Amino Transferase 21 U/L (0-34); BUN/Creatinine Ratio 30 Ratio (12-20); Bilirubin,Total 0.4 mg/dL (0.3-1.2); Blood Urea Nitrogen 12 mg/dL (9-23); Calcium 8.8 mg/dL (8.3-10.6); Calcium (Corrected) 9.5 mg/dL (8.5-10.1); Carbon Dioxide 26.2 mMol/L (20.0-31.0); Chloride 105 mMol/L (98-107); Creatinine (Component) 0.4 mg/dL (0.6-1.3); Globulin 2.5 gm/dL (2.3-3.5); Glucose 105 mg/dL (74-106); Osmolality,Calculated 284 (275-295); Potassium 3.2 mMol/L (3.4-5.1); Sodium 143 mMol/L (136-145); Thyroid Stimulating Hormone 0.62 uIU/mL (0.55-4.78); Total Protein 5.6 gm/dL (5.7-8.2); eGFR > 60 See Note
[2024-10-09 08:18] LABS: Alanine Aminotransferase 22 U/L (10-49); Albumin, Serum 2.9 gm/dL (3.4-4.8); Albumin/Globulin Ratio 1.1 (1.2-2.2); Alkaline Phosphatase 141 U/L (46-116); Anion Gap 15 (7-16); Aspartate Amino Transferase 21 U/L (0-34); BUN/Creatinine Ratio 20 Ratio (12-20); Bilirubin,Total 0.2 mg/dL (0.3-1.2); Blood Urea Nitrogen 10 mg/dL (9-23); Calcium 9.0 mg/dL (8.3-10.6); Calcium (Corrected) 9.9 mg/dL (8.5-10.1); Carbon Dioxide 22.7 mMol/L (20.0-31.0); Chloride 103 mMol/L (98-107); Creatinine (Component) 0.5 mg/dL (0.6-1.3); Globulin 2.6 gm/dL (2.3-3.5); Glucose 274 mg/dL (74-106); Osmolality,Calculated 290 (275-295); Potassium 3.5 mMol/L (3.4-5.1); Sodium 141 mMol/L (136-145); Total Protein 5.5 gm/dL (5.7-8.2); eGFR > 60 See Note
[2024-10-09 08:25] LABS: Basophils # (Auto) 0.0 Thou/mm3 (0.0-0.2); Basophils % (Auto) 0 % (0-2.5); Eosinophils # (Auto) 0.0 Thou/mm3 (0.0-0.5); Eosinophils % (Auto) 0 % (0-10); Hematocrit 37.3 % (36.0-46.0); Hemoglobin 11.7 g/dL (12.0-16.0); Immature Granulocytes Auto 0.02 Thou/mm3 (0.00-0.00); Lymphocytes # (Auto) 0.7 Thou/mm3 (1.0-4.8); Lymphocytes % (Auto) 17 % (10-50); Mean Corpuscular HGB Conc 31.4 g/dl (31.0-37.0); Mean Corpuscular Hemoglobin 31.4 pg (25.0-35.0); Mean Corpuscular Volume 100 fL (80-100); Monocytes # (Auto) 0.1 Thou/mm3 (0.0-0.8); Monocytes % (Auto) 2 % (0-12); Neutrophils # (Auto) 3.0 Thou/mm3 (1.8-7.7); Neutrophils % (Auto) 80 % (37-80); Nucleated Red Blood Cell # 0.00 Thou/mm3 (0.00-0.00); Nucleated Red Blood Cell % 0 /100 WBC (0); Platelet Count 294 Thou/mm3 (140-440); RDW Standard Deviation 47.0 fL (36.4-46.3); Red Blood Count 3.73 Miln/mm3 (4.00-5.20); White Blood Count 3.7 Thou/mm3 (3.6-11.0)
--- NOTE | 2024-10-09 13:41 | CTCFLWUP_ITS ---
Patient: LAURA KAYE : 1950 Page 2 of 2 FOLLOW UP NOTE DATE OF SERVICE: 10/05/2024 NAME: LAURA KAYE ACCOUNT: [id number] : 1950 AGE: 74 INTERVAL HISTORY: Right is here for follow-up on her squamous cell lung cancer. Patient has been losing weight and have lost 20 pounds since the last visit.. Patient have decreased appetite. Medications and Supplements - Keytruda - 30-minute infusion - Immunotherapy maintenance treatment Review of Systems General: Positive for weight gain. Skin: Positive for hair loss, with some regrowth noted. Cardiovascular: Positive for bilateral lower extremity edema, improved with elevation. Objective: Physical Examination Musculoskeletal: Bilateral lower extremity edema noted, more pronounced in one leg. Edema appears to be improving with elevation. Skin: Hair regrowth observed on scalp. Objective: Vital Signs - Weight: 95 kg Physical Examination General: Patient appears to be in improved condition compared to previous visits. Alert and able to engage in conversation. HEENT: Right eye noted to have redness in one spot, progressing to half of the eye being red. Laboratory, Imaging, and Diagnostic Test Results - CT scan of abdomen and pelvis (date not specified): - No liver involvement - Large defect in stomach area - PET scan (date not specified): - Results pending - Brain MRI (date not specified): - Results pending General: Positive for weight gain. HEENT: Positive for eye redness, negative for eye itching or irritation. Respiratory: Negative for shortness of breath. Gastrointestinal: Positive for past stomach pain. Musculoskeletal: Positive for hernia-related pain. ONCOLOGY HISTORY: DIAGNOSIS: Invasive squamous cell cancer DATE OF DIAGNOSIS: 02/08/2024 STAGE/TNM: Likely stage III based on imaging TREATMENT HISTORY: Care?Plan Start?Date Cycle Day Intent Pembro?Paclitaxel?Carbopla?sq?cell 04/25/202403 14 Palliative carbo?taxol?pembro?1 10/09/2024 1 21 Palliative HISTORY OF PRESENT ILLNESS: 74-year-old female with a new diagnosis of squamous cell lung cancer. Patient is complaining of weight loss. Patient's last scan was in January. Patient was complaining of bronchitis-like symptoms. Patient then was found to have pulmonary nodules and advice was to repeat CT scan. Patient also had 15 pound weight loss. Patient have no targetable mutations OTHER MEDICAL HISTORY/CONDITIONS: Lung cancer Asthma Gastritis / gastroentestinal disease Umbilical?hernia?repair?-?20?yrs?ago FAMILY HISTORY: Patient?denies?family?cancer?history. SOCIAL HISTORY: Occupational?History:?Retired?- Education?Level:?Vocational School Graduate Marital?Status:? Tobacco Use:?Smoked 1PP x 10yrs; quit 6 months ago ETOH?Use:?Socailly Drug?Note:?Denies Social?History?Note:?Son?lives?wtih?pt [employer] HISTORY: Menarche?-?Age:?14 Menopause:?Age?57 :?4 Live?Births:?4 Age?1st?:?16 MEDICATIONS: 1. Albuterol Sulfate HFA - 90 mcg/Actuation 1 Puff(s) Twice a Day 2. Benadryl - 25 mg 2 tab 2 tabs po 12 hrs and 6 hrs before chemo 3. Benadryl Allergy - 25 mg 2 tab 2 tabs 12 and 6 hours before chemo 4. Calcium 600 + D(3) - 600-125 mg-unit 1 tab Every other day 5. Compazine - 5 mg 1 tab Daily 6. cyclobenzaprine - 10 mg 1 tab Daily 7. Decadron - 4 mg 5 tab 5 tabs ( 20 mg) po 12 hours and 6 hours before beckie 8. dexamethasone - 4 mg 5 tab Take 5 tabs 12 hours and 6 hours before chemo 9. dexAMETHasone - 20 mg 1 tab 1 tab po 12 hrs and 6 hrs before chemo 10. HYDROcodone-acetaminophen - 10-325 mg 1 tab q6 11. hydrOXYzine HCl - 10 mg 1 tab Daily 12. montelukast - 10 mg 1 tab Daily 13. [place] - 10-325 mg 1 tab Twice a Day 14. omeprazole - 20 mg 1 Capsule Twice a Day 15. ondansetron - 8 mg 1 tab Daily 16. oxyCODONE-acetaminophen - 10-325 mg 1 tab q6 17. Pepcid - 20 mg 1 tab Take 1 tab 12 hours and 6 hours before chemo 18. Triamcinolone Acetonide (Top) - 0.1 % As directed Medications Last Reconciled by Shani Bonner MD on 10/05/2024 ALLERGIES: No Known Drug Allergies REVIEW OF SYSTEMS: A complete 14-point review of systems was performed and is negative except as noted in interval history. PHYSICAL EXAMINATION: VITAL SIGNS: Temperature?98, B/P?118/77, Oxygen?Saturation?98% Weight?84?lbs (Change?since?09/26/24:?-0.6?lbs) PAIN: 4 - Moderate pain ECOG Performance Status: 3 - Symptomatic; limited self-care; spends >50% of time in bed, not bedridden GENERAL APPEARANCE: Appears well, in no apparent distress, appropriately interactive. HEENT: Normocephalic, no temporal wasting, normal conjunctiva, no scleral icterus, normal hearing, lips without lesions, neck normal range of motion. CARDIOVASCULAR: Not assessed. PULMONARY: Bilateral expiratory wheezing EXTREMITIES: No pedal edema or cyanosis. SKIN: Normal skin appearance. NEUROLOGIC: Alert and oriented x4. PSHYCHIATRIC: Appropriate affect, mood normal, behavior normal, intact thought and speech. LABORATORY DATA: I have personally reviewed and interpreted each of the patient?s relevant lab tests, abnormal findings are below: Date 09/25/24 10/09/24 ??WHITE?BLOOD?COUNT?(Thou/mm3) 7.0 3.7 ??RED?BLOOD?COUNT?(Miln/mm3) 3.21?L 3.73?L ??HEMOGLOBIN?(gm/dl) 10.4?L 11.7?L ??HEMATOCRIT?(%) 32.2?L 37.3 ??PLATELET?COUNT?(Thou/mm3) 322 294 ??NEUTROPHILS?%,?AUTO?(%) 70 80 ??LYMPH?%,?AUTO?(%) 17 17 ??NEUTROPHILS,?AUTO?(Thou/mm3) 4.9 3.0 ??GLUCOSE,RANDOM?(mg/dL) 105 274?H ??BLOOD?UREA?NITROGEN?(mg/dL) 12 10 ??CREATININE?(mg/dL) 0.40?L 0.50?L ??SODIUM?(mmol/L) 143 141 ??POTASSIUM?(mmol/L) 3.2?L 3.5 ??CHLORIDE?(mmol/L) 105 103 ??CrCl?(CandG)?(ml/min) 77.38 62.49 ??AST/SGOT?(Unit/L) 21 21 ??ALT/SGPT?(Unit/L) 14 22 ??ALKALINE?PHOSPHATASE?(Unit/L) 115 141?H ??BILIRUBIN,?TOTAL?(mg/dL) 0.4 0.2?L ??PROTEIN?TOTAL?(gm/dl) 5.6?L 5.5?L ??ALBUMIN,?SERUM?(gm/dl) 3.1?L 2.9?L ??GLOBULIN?(gm/dl) 2.5 2.6 ??ALBUMIN/GLOBULIN?RATIO 1.2 1.1?L ??CALCIUM,?SERUM?(mg/dL) 8.8 9.0 ??CALCIUM?SERUM?(CORRECTED)?(mg/dL) 9.5 9.9 ASSESSMENT/PLAN: Squamous cell lung cancer likely stage III 03/23/2024-PET CT scan reviewed.Hypermetabolic mediastinal and right internal mammary lymphadenopathy Extensive abnormal hypermetabolic nodular pleural disease surrounding the right lung MRI brain reviewed and shows Negative for acute hemorrhage, mass effect or midline shift No acute infarct No abnormal enhancing cerebellar or cerebral metastatic lesions PFTs shows very low lung function Patient was seen by radiation oncology and not a candidate for radiation or surgery As patient is likely progressing we will restart her on chemotherapy Will give CarboTaxol along with Keytruda Will switch therapy by the next chemo cycle Bilateral lower extremity edema Assessment: Patient presents with bilateral lower extremity edema, more pronounced in the morning and improving with elevation. The edema is assessed as dependent edema and is not currently causing pain. There is no significant asymmetry between the legs to suggest deep vein thrombosis. Plan: - Recommend compression stockings (long, strong socks) - Educate on leg elevation when resting - Measure leg circumference today and repeat in 4 weeks - Consider lymphedema pump pending approval, based on measurements - Avoid short socks; recommend longer socks for better circulation and warmth Weight gain Assessment: Patient reports recent weight gain, which may be related to fluid retention or other factors associated with cancer treatment. Plan: - Monitor weight at follow-up appointments - Assess for correlation with edema and overall health status ORDERS: Order # Description [id number] CBC + Comprehensive Metabolic Panel [id number] Lab Appointment [id number] CBC + Comprehensive Metabolic Panel [id number] Lab Appointment [id number] CBC + Comprehensive Metabolic Panel [id number] Lab Appointment [id number] CBC + Comprehensive Metabolic Panel [id number] Lab Appointment RETURN TO CLINIC: I reviewed the diagnosis, prognosis, and recommended treatment/procedure options with the patient (and/or their legal medical representative), including the potential benefits, risks, side effects and alternative therapies. We also discussed the option of no treatment and the possibility of clinical trial participation, if applicable. All questions were addressed, and they demonstrated understanding. They provided informed consent to proceed with the proposed plan of care. BILLING AND COMPLIANCE: I reviewed external records from providers outside my specialty as summarized above. I spent a total of 50 minutes on this patient?s care on the day of their visit excluding time spent related to any billed procedures. This time includes time spent with the patient as well as time spent documenting in the medical record, reviewing patients records and tests, obtaining history, placing orders, communicating with other healthcare professionals, counseling the patient, family or caregiver, and/or care coordination for the diagnoses above. Electronically Signed by: Jaison Frost MD T: 1:39 PM CC: Anita?DUNG Black PCP: Anita Black Referring: Anita Black This document was completed utilizing speech recognition software. Grammatical errors, random word insertions, pronoun errors, and incomplete sentences are an occasional consequence of this system due to software limitations, ambient noise, and hardware issues. Any formal questions or concerns about the content, text or information contained within the body of this dictation should be directly addressed to the provider for clarification.
== END 2024-10-22 23:59 | disposition home or self-care (01) ==
LOC: SCTC 10:14
PROVIDERS: PCP Specialist; Referring Provider Specialist; Visit Provider Internal Medicine Hematology & Oncology
DX: Z51.11 Encounter for antineoplastic chemotherapy (principal); C34.11 Malignant neoplasm of upper lobe, right bronchus or lung; R59.1 Generalized enlarged lymph nodes; R60.0 Localized edema; R63.5 Abnormal weight gain; Z68.1 Body mass index [BMI] 19.9 or less, adult
CPT/HCPCS: 36591; 80053; 84443; 85025; 96367; 96372; 96375; 96413; 96415; 96417; 96549; 99212; A4216; J1100; J1453; J1642; J2405; J2506; J3490; J7040; J7050; J9045; J9267; J9271; A9270; G0463

== ENCOUNTER 2024-11-16 12:58 | Outpatient (RCR) | payer MEDICARE, SELFPAY ==
[2024-11-01 16:19] LABS: Basophils # (Auto) 0.1 Thou/mm3 (0.0-0.2); Basophils % (Auto) 1 % (0-2.5); Eosinophils # (Auto) 0.1 Thou/mm3 (0.0-0.5); Eosinophils % (Auto) 0 % (0-10); Hematocrit 31.3 % (36.0-46.0); Hemoglobin 9.7 g/dL (12.0-16.0); Immature Granulocytes Auto 0.17 Thou/mm3 (0.00-0.00); Lymphocytes # (Auto) 2.1 Thou/mm3 (1.0-4.8); Lymphocytes % (Auto) 13 % (10-50); Mean Corpuscular HGB Conc 31.0 g/dl (31.0-37.0); Mean Corpuscular Hemoglobin 31.0 pg (25.0-35.0); Mean Corpuscular Volume 100 fL (80-100); Monocytes # (Auto) 1.5 Thou/mm3 (0.0-0.8); Monocytes % (Auto) 9 % (0-12); Neutrophils # (Auto) 12.1 Thou/mm3 (1.8-7.7); Neutrophils % (Auto) 76 % (37-80); Nucleated Red Blood Cell # 0.00 Thou/mm3 (0.00-0.00); Nucleated Red Blood Cell % 0 /100 WBC (0); Platelet Count 299 Thou/mm3 (140-440); RDW Standard Deviation 50.7 fL (36.4-46.3); Red Blood Count 3.13 Miln/mm3 (4.00-5.20); White Blood Count 16.0 Thou/mm3 (3.6-11.0)
[2024-11-01 16:34] LABS: Alanine Aminotransferase 17 U/L (10-49); Albumin, Serum 2.4 gm/dL (3.4-4.8); Albumin/Globulin Ratio 1.1 (1.2-2.2); Alkaline Phosphatase 143 U/L (46-116); Anion Gap 8 (7-16); Aspartate Amino Transferase 22 U/L (0-34); BUN/Creatinine Ratio 27 Ratio (12-20); Bilirubin,Total 0.3 mg/dL (0.3-1.2); Blood Urea Nitrogen 8 mg/dL (9-23); Calcium 8.0 mg/dL (8.3-10.6); Calcium (Corrected) 9.3 mg/dL (8.5-10.1); Carbon Dioxide 28.7 mMol/L (20.0-31.0); Chloride 105 mMol/L (98-107); Creatinine (Component) 0.3 mg/dL (0.6-1.3); Globulin 2.2 gm/dL (2.3-3.5); Glucose 77 mg/dL (74-106); Osmolality,Calculated 280 (275-295); Potassium 3.7 mMol/L (3.4-5.1); Sodium 142 mMol/L (136-145); Total Protein 4.6 gm/dL (5.7-8.2); eGFR > 60 See Note
[2024-11-08 11:15] LABS: Basophils # (Auto) 0.1 Thou/mm3 (0.0-0.2); Basophils % (Auto) 1 % (0-2.5); Eosinophils # (Auto) 0.0 Thou/mm3 (0.0-0.5); Eosinophils % (Auto) 0 % (0-10); Hematocrit 28.1 % (36.0-46.0); Immature Granulocytes Auto 0.03 Thou/mm3 (0.00-0.00); Lymphocytes # (Auto) 1.4 Thou/mm3 (1.0-4.8); Lymphocytes % (Auto) 21 % (10-50); Mean Corpuscular HGB Conc 31.3 g/dl (31.0-37.0); Mean Corpuscular Hemoglobin 31.0 pg (25.0-35.0); Mean Corpuscular Volume 99 fL (80-100); Monocytes # (Auto) 0.3 Thou/mm3 (0.0-0.8); Monocytes % (Auto) 4 % (0-12); Neutrophils # (Auto) 5.1 Thou/mm3 (1.8-7.7); Neutrophils % (Auto) 73 % (37-80); Nucleated Red Blood Cell # 0.00 Thou/mm3 (0.00-0.00); Nucleated Red Blood Cell % 0 /100 WBC (0); Platelet Count 171 Thou/mm3 (140-440); RDW Standard Deviation 50.1 fL (36.4-46.3); Red Blood Count 2.84 Miln/mm3 (4.00-5.20); White Blood Count 7.0 Thou/mm3 (3.6-11.0)
[2024-11-08 11:34] LABS: Alanine Aminotransferase 15 U/L (10-49); Albumin, Serum 2.4 gm/dL (3.4-4.8); Albumin/Globulin Ratio 1.1 (1.2-2.2); Alkaline Phosphatase 115 U/L (46-116); Anion Gap 8 (7-16); Aspartate Amino Transferase 21 U/L (0-34); BUN/Creatinine Ratio 17 Ratio (12-20); Bilirubin,Total 0.2 mg/dL (0.3-1.2); Blood Urea Nitrogen 5 mg/dL (9-23); Calcium 8.1 mg/dL (8.3-10.6); Calcium (Corrected) 9.4 mg/dL (8.5-10.1); Carbon Dioxide 28.6 mMol/L (20.0-31.0); Chloride 106 mMol/L (98-107); Creatinine (Component) 0.3 mg/dL (0.6-1.3); Globulin 2.1 gm/dL (2.3-3.5); Glucose 98 mg/dL (74-106); Osmolality,Calculated 282 (275-295); Potassium 3.3 mMol/L (3.4-5.1); Sodium 143 mMol/L (136-145); Total Protein 4.5 gm/dL (5.7-8.2); eGFR > 60 See Note
[2024-11-08 12:18] LABS: Hemoglobin 8.8 g/dL (12.0-16.0)
[2024-11-15 16:10] LABS: Basophils # (Auto) 0.0 Thou/mm3 (0.0-0.2); Basophils % (Auto) 1 % (0-2.5); Eosinophils # (Auto) 0.0 Thou/mm3 (0.0-0.5); Eosinophils % (Auto) 1 % (0-10); Hematocrit 26.7 % (36.0-46.0); Immature Granulocytes Auto 0.01 Thou/mm3 (0.00-0.00); Lymphocytes # (Auto) 0.9 Thou/mm3 (1.0-4.8); Lymphocytes % (Auto) 35 % (10-50); Mean Corpuscular HGB Conc 32.2 g/dl (31.0-37.0); Mean Corpuscular Hemoglobin 31.0 pg (25.0-35.0); Mean Corpuscular Volume 96 fL (80-100); Monocytes # (Auto) 0.1 Thou/mm3 (0.0-0.8); Monocytes % (Auto) 4 % (0-12); Neutrophils # (Auto) 1.5 Thou/mm3 (1.8-7.7); Neutrophils % (Auto) 59 % (37-80); Nucleated Red Blood Cell # 0.00 Thou/mm3 (0.00-0.00); Nucleated Red Blood Cell % 0 /100 WBC (0); Platelet Count 112 Thou/mm3 (140-440); RDW Standard Deviation 46.9 fL (36.4-46.3); Red Blood Count 2.77 Miln/mm3 (4.00-5.20); White Blood Count 2.6 Thou/mm3 (3.6-11.0)
[2024-11-15 16:38] LABS: Alanine Aminotransferase 12 U/L (10-49); Albumin, Serum 2.7 gm/dL (3.4-4.8); Albumin/Globulin Ratio 1.2 (1.2-2.2); Alkaline Phosphatase 112 U/L (46-116); Anion Gap 10 (7-16); Aspartate Amino Transferase 16 U/L (0-34); BUN/Creatinine Ratio 18 Ratio (12-20); Bilirubin,Total 0.3 mg/dL (0.3-1.2); Blood Urea Nitrogen 7 mg/dL (9-23); Calcium 8.1 mg/dL (8.3-10.6); Calcium (Corrected) 9.1 mg/dL (8.5-10.1); Carbon Dioxide 27.2 mMol/L (20.0-31.0); Chloride 106 mMol/L (98-107); Creatinine (Component) 0.4 mg/dL (0.6-1.3); Globulin 2.2 gm/dL (2.3-3.5); Glucose 213 mg/dL (74-106); Osmolality,Calculated 288 (275-295); Potassium 3.4 mMol/L (3.4-5.1); Sodium 143 mMol/L (136-145); Total Protein 4.9 gm/dL (5.7-8.2); eGFR > 60 See Note
[2024-11-15 17:21] LABS: Hemoglobin 8.6 g/dL (12.0-16.0)
== END 2024-11-21 23:59 | disposition home or self-care (01) ==
LOC: SCTC 12:58
PROVIDERS: Internal Medicine Hematology & Oncology; PCP Specialist; Referring Provider Specialist; Visit Provider Radiology Therapeutic Radiology
DX: Z51.11 Encounter for antineoplastic chemotherapy (principal); C34.11 Malignant neoplasm of upper lobe, right bronchus or lung; C79.72 Secondary malignant neoplasm of left adrenal gland; C79.51 Secondary malignant neoplasm of bone; C78.7 Secondary malignant neoplasm of liver and intrahepatic bile duct; C77.9 Secondary and unspecified malignant neoplasm of lymph node, unspecified
CPT/HCPCS: 36591; 80053; 85025; 96367; 96413; 99212; A4216; J1100; J1642; J2405; J3490; J7040; J7050; J9201; G0463

== ENCOUNTER 2024-11-28 11:57 | Outpatient (RCR) | payer MEDICARE, SELFPAY ==
[2024-11-22 10:42] LABS: Basophils # (Auto) 0.0 Thou/mm3 (0.0-0.2); Basophils % (Auto) 2 % (0-2.5); Eosinophils # (Auto) 0.0 Thou/mm3 (0.0-0.5); Eosinophils % (Auto) 1 % (0-10); Hematocrit 25.9 % (36.0-46.0); Immature Granulocytes Auto 0.15 Thou/mm3 (0.00-0.00); Lymphocytes # (Auto) 0.7 Thou/mm3 (1.0-4.8); Lymphocytes % (Auto) 42 % (10-50); Mean Corpuscular HGB Conc 32.0 g/dl (31.0-37.0); Mean Corpuscular Hemoglobin 31.8 pg (25.0-35.0); Mean Corpuscular Volume 99 fL (80-100); Monocytes # (Auto) 0.1 Thou/mm3 (0.0-0.8); Monocytes % (Auto) 4 % (0-12); Neutrophils # (Auto) 0.7 Thou/mm3 (1.8-7.7); Neutrophils % (Auto) 42 % (37-80); Nucleated Red Blood Cell # 0.00 Thou/mm3 (0.00-0.00); Nucleated Red Blood Cell % 0 /100 WBC (0); RDW Standard Deviation 48.3 fL (36.4-46.3); Red Blood Count 2.61 Miln/mm3 (4.00-5.20); White Blood Count 1.7 Thou/mm3 (3.6-11.0)
[2024-11-22 10:59] LABS: Hemoglobin 8.3 g/dL (12.0-16.0)
[2024-11-22 11:10] LABS: Alanine Aminotransferase 10 U/L (10-49); Albumin, Serum 2.5 gm/dL (3.4-4.8); Albumin/Globulin Ratio 1.1 (1.2-2.2); Alkaline Phosphatase 114 U/L (46-116); Anion Gap 8 (7-16); Aspartate Amino Transferase 18 U/L (0-34); BUN/Creatinine Ratio 23 Ratio (12-20); Bilirubin,Total 0.4 mg/dL (0.3-1.2); Blood Urea Nitrogen 7 mg/dL (9-23); Calcium 8.3 mg/dL (8.3-10.6); Calcium (Corrected) 9.5 mg/dL (8.5-10.1); Carbon Dioxide 28.7 mMol/L (20.0-31.0); Chloride 107 mMol/L (98-107); Creatinine (Component) 0.3 mg/dL (0.6-1.3); Globulin 2.2 gm/dL (2.3-3.5); Glucose 86 mg/dL (74-106); Osmolality,Calculated 283 (275-295); Potassium 3.5 mMol/L (3.4-5.1); Sodium 144 mMol/L (136-145); Total Protein 4.7 gm/dL (5.7-8.2); eGFR > 60 See Note
[2024-11-22 11:41] LABS: Platelet Count 123 Thou/mm3 (140-440)
[2024-11-22 11:47] LABS: Path Review Blood Smear Sent to Pathologist
--- NOTE | 2024-12-01 09:03 | CTCFLWUP_ITS ---
[facility] [address], [place] [address] FOLLOW-UP NOTE Date: 12/01/2024 MR#: [id number] Name: LAURA KAYE : 1950 Dx: C34.11 Malignant neoplasm of upper lobe, right bronchus or lung Pt at home with [place]. Spoke to pt?s nephew and Katarzyna IBRAHIM Electronically signed by: Robbi Pratt M.D. 12/01/2024 9:00 AM
--- NOTE | 2024-12-03 21:45 | CTCFLWUP_ITS ---
Patient: LAURA KAYE : 1950 Page 4 of 5 FOLLOW UP NOTE DATE OF SERVICE: 11/28/2024 NAME: LAURA KAYE ACCOUNT: [id number] : 1950 AGE: 74 INTERVAL HISTORY: Right is here for follow-up on her squamous cell lung cancer. Patient have decreased appetite. Patient says that she has some good and bad days and want to continue therapy. Per patient and family patient is gaining some weight back. Medications and Supplements - Keytruda - 30-minute infusion - Immunotherapy maintenance treatment Review of Systems General: Positive for weight gain. Skin: Positive for hair loss, with some regrowth noted. Cardiovascular: Positive for bilateral lower extremity edema, improved with elevation. Objective: Physical Examination Musculoskeletal: Bilateral lower extremity edema noted, more pronounced in one leg. Edema appears to be improving with elevation. Skin: Hair regrowth observed on scalp. Objective: Vital Signs - Weight: 95 kg Physical Examination General: Patient appears to be in improved condition compared to previous visits. Alert and able to engage in conversation. HEENT: Right eye noted to have redness in one spot, progressing to half of the eye being red. Laboratory, Imaging, and Diagnostic Test Results - CT scan of abdomen and pelvis (date not specified): - No liver involvement - Large defect in stomach area - PET scan (date not specified): - Results pending - Brain MRI (date not specified): - Results pending General: Positive for weight gain. HEENT: Positive for eye redness, negative for eye itching or irritation. Respiratory: Negative for shortness of breath. Gastrointestinal: Positive for past stomach pain. Musculoskeletal: Positive for hernia-related pain. ONCOLOGY HISTORY: DIAGNOSIS: Invasive squamous cell cancer DATE OF DIAGNOSIS: 02/08/2024 STAGE/TNM: Likely stage III based on imaging TREATMENT HISTORY: Care?Plan Start?Date Cycle Day Intent Pembro?Paclitaxel?Carbopla?sq?cell 04/25/2024 1 21 Palliative carbo?taxol?pembro?1 10/09/2024 1 21 Palliative Gemcitabine?1000?mg?weekly 10/18/2024 1 7 Palliative HISTORY OF PRESENT ILLNESS: 74-year-old female with a new diagnosis of squamous cell lung cancer. Patient is complaining of weight loss. Patient's last scan was in January. Patient was complaining of bronchitis-like symptoms. Patient then was found to have pulmonary nodules and advice was to repeat CT scan. Patient also had 15 pound weight loss. Patient have no targetable mutations OTHER MEDICAL HISTORY/CONDITIONS: Lung cancer Asthma Gastritis / gastroentestinal disease Umbilical?hernia?repair?-?20?yrs?ago FAMILY HISTORY: Patient?denies?family?cancer?history. SOCIAL HISTORY: Occupational?History:?Retired?- Education?Level:?Vocational School Graduate Marital?Status:? Tobacco Use:?Smoked 1PP x 10yrs; quit 6 months ago ETOH?Use:?Socailly Drug?Note:?Denies Social?History?Note:?Son?lives?wtih?pt [employer] HISTORY: Menarche?-?Age:?14 Menopause:?Age?57 :?4 Live?Births:?4 Age?1st?:?16 MEDICATIONS: 1. Albuterol Sulfate HFA - 90 mcg/Actuation 1 Puff(s) Twice a Day 2. Benadryl - 25 mg 2 tab 2 tabs po 12 hrs and 6 hrs before chemo 3. Benadryl Allergy - 25 mg 2 tab 2 tabs 12 and 6 hours before chemo 4. Calcium 600 + D(3) - 600-125 mg-unit 1 tab Every other day 5. Compazine - 5 mg 1 tab Daily 6. cyclobenzaprine - 10 mg 1 tab Daily 7. dexAMETHasone - 20 mg 1 tab 1 tab po 12 hrs and 6 hrs before chemo 8. dexamethasone - 4 mg 5 tab Take 5 tabs 12 hours and 6 hours before chemo 9. HYDROcodone-acetaminophen - 10-325 mg 1 tab q6 10. hydrOXYzine HCl - 10 mg 1 tab Daily 11. montelukast - 10 mg 1 tab Daily 12. [place] - 10-325 mg 1 tab Twice a Day 13. omeprazole - 20 mg 1 Capsule Twice a Day 14. ondansetron - 8 mg 1 tab Daily 15. oxyCODONE-acetaminophen - 10-325 mg 1 tab q6 16. Pepcid - 20 mg 1 tab Take 1 tab 12 hours and 6 hours before chemo 17. Triamcinolone Acetonide (Top) - 0.1 % As directed Medications Last Reconciled by Shani Bonner MD on 11/29/2024 ALLERGIES: No Known Drug Allergies REVIEW OF SYSTEMS: A complete 14-point review of systems was performed and is negative except as noted in interval history. PHYSICAL EXAMINATION: VITAL SIGNS: Temperature?97.5, B/P?122/78, Oxygen?Saturation?96% PAIN: 0 - No pain ECOG Performance Status: 2 - Symptomatic; ambulatory; capable of self-care; >50% of waking hrs. not in bed GENERAL APPEARANCE: Appears well, in no apparent distress, appropriately interactive. HEENT: Normocephalic, no temporal wasting, normal conjunctiva, no scleral icterus, normal hearing, lips without lesions, neck normal range of motion. CARDIOVASCULAR: Not assessed. PULMONARY: Bilateral expiratory wheezing EXTREMITIES: No pedal edema or cyanosis. SKIN: Normal skin appearance. NEUROLOGIC: Alert and oriented x4. PSHYCHIATRIC: Appropriate affect, mood normal, behavior normal, intact thought and speech. LABORATORY DATA: I have personally reviewed and interpreted each of the patient?s relevant lab tests, abnormal findings are below: Date 11/15/24 11/22/24 ??WHITE?BLOOD?COUNT?(Thou/mm3) 2.6?L 1.7?L ??RED?BLOOD?COUNT?(Miln/mm3) 2.77?L 2.61?L ??HEMOGLOBIN?(gm/dl) 8.6?L 8.3?L ??HEMATOCRIT?(%) 26.7?L 25.9?L ??PLATELET?COUNT?(Thou/mm3) 112?L 123?L ??NEUTROPHILS?%,?AUTO?(%) 59 42 ??LYMPH?%,?AUTO?(%) 35 42 ??NEUTROPHILS,?AUTO?(Thou/mm3) 1.5?L 0.7?L ??GLUCOSE,RANDOM?(mg/dL) 213?H 86 ??BLOOD?UREA?NITROGEN?(mg/dL) 7?L 7?L ??CREATININE?(mg/dL) 0.40?L 0.30?L ??SODIUM?(mmol/L) 143 144 ??POTASSIUM?(mmol/L) 3.4 3.5 ??CHLORIDE?(mmol/L) 106 107 ??CrCl?(CandG)?(ml/min) 83.57 108.27 ??AST/SGOT?(Unit/L) 16 18 ??ALT/SGPT?(Unit/L) 12 10 ??ALKALINE?PHOSPHATASE?(Unit/L) 112 114 ??BILIRUBIN,?TOTAL?(mg/dL) 0.3 0.4 ??PROTEIN?TOTAL?(gm/dl) 4.9?L 4.7?L ??ALBUMIN,?SERUM?(gm/dl) 2.7?L 2.5?L ??GLOBULIN?(gm/dl) 2.2?L 2.2?L ??ALBUMIN/GLOBULIN?RATIO 1.2 1.1?L ??CALCIUM,?SERUM?(mg/dL) 8.1?L 8.3 ??CALCIUM?SERUM?(CORRECTED)?(mg/dL) 9.1 9.5 ASSESSMENT/PLAN: Squamous cell lung cancer likely stage III 03/23/2024-PET CT scan reviewed.Hypermetabolic mediastinal and right internal mammary lymphadenopathy Extensive abnormal hypermetabolic nodular pleural disease surrounding the right lung MRI brain reviewed and shows Negative for acute hemorrhage, mass effect or midline shift No acute infarct No abnormal enhancing cerebellar or cerebral metastatic lesions PFTs shows very low lung function Patient was seen by radiation oncology and not a candidate for radiation or surgery Patient have completed 4 cycles of gemcitabine Will follow-up on naterra results Continue current therapy at lower dose Will scan to see response to treatment Patient and family not ready for hospice care ORDERS: Order # Description [id number] CT Scan + Chest + Abdomen and Pelvis + With W/O Contrast [id number] Follow Up Appointment [id number] CBC + Comprehensive Metabolic Panel [id number] Lab Appointment RETURN TO CLINIC: I reviewed the diagnosis, prognosis, and recommended treatment/procedure options with the patient (and/or their legal client support representative), including the potential benefits, risks, side effects and alternative therapies. We also discussed the option of no treatment and the possibility of clinical trial participation, if applicable. All questions were addressed, and they demonstrated understanding. They provided informed consent to proceed with the proposed plan of care. BILLING AND COMPLIANCE: I reviewed external records from providers outside my specialty as summarized above. I spent a total of 50 minutes on this patient?s care on the day of their visit excluding time spent related to any billed procedures. This time includes time spent with the patient as well as time spent documenting in the medical record, reviewing patients records and tests, obtaining history, placing orders, communicating with other healthcare professionals, counseling the patient, family or caregiver, and/or care coordination for the diagnoses above. Electronically Signed by: {Object.Sanct_ID*PnP.NameFL@M}, {Object.Sanct_ID*PnP.Suffix@U} D: {Object.Sanct_Date} T: {Object.Sanct_Time} CC: Anita?DUNG Black PCP: Anita Black Referring: Anita Black This document was completed utilizing speech recognition software. Grammatical errors, random word insertions, pronoun errors, and incomplete sentences are an occasional consequence of this system due to software limitations, ambient noise, and hardware issues. Any formal questions or concerns about the content, text or information contained within the body of this dictation should be directly addressed to the provider for clarification.
== END 2024-12-22 23:59 | disposition home or self-care (01) ==
LOC: SCTC 11:57
PROVIDERS: Internal Medicine Hematology & Oncology; PCP Specialist; Referring Provider Specialist; Visit Provider Radiology Therapeutic Radiology
DX: C34.11 Malignant neoplasm of upper lobe, right bronchus or lung (principal)
CPT/HCPCS: 36591; 80053; 85025; 99212; A4216; J1642; G0463